=== PATIENT | male | born 1980 | race Two or more races ===

== ENCOUNTER 2020-12-10 12:05 | Outpatient (REF) | payer MEDICAID, SELFPAY | END 2020-12-10 12:06 | disposition home or self-care (01) | LOC: HO.LAB 12:05 | PROVIDERS: Visit Provider Internal Medicine | DX: Z20.822 Contact with and (suspected) exposure to COVID-19 (principal) | CPT/HCPCS: 36415; C9803; U0003 ==

== ENCOUNTER 2021-01-21 10:58 | Outpatient (REF) | payer MEDICAID, SELFPAY ==
[2021-01-21 11:54] LABS: Estimated Average Glucose 105 mg/dL; Hemoglobin A1c % 5.3 %
[2021-01-21 12:17] LABS: Alanine Aminotransferase 46 U/L (0-40); Albumin Level 4.4 g/dL (3.5-5.0); Alkaline Phosphatase 65 U/L (39-117); Anion Gap 12 (12-20); Aspartate Amino Transferase 24 U/L (5-37); Bilirubin Total 0.5 mg/dL (0.0-1.0); Blood Urea Nitrogen 12 mg/dL (9-16); Calcium 9.5 mg/dL (8.4-10.2); Carbon Dioxide 30 mmol/L (22-29); Chloride 102 mmol/L (96-108); Cholesterol 155 mg/dL; Estimated Glomerular Filt Rate > 60; Glucose Fasting 113 mg/dL (60-99); HDL Cholesterol 45 mg/dL; LDL Cholesterol Calculated 80 mg/dl; Potassium 4.4 mmol/L (3.3-5.1); Sodium 140 mmol/L (135-145); Total Protein 7.2 g/dL (6.5-8.0); Triglycerides 152 mg/dL
[2021-01-21 12:39] LABS: TSH reflex Free T4 2.46 uIU/mL (0.32-4.0)
== END 2021-01-21 10:59 | disposition home or self-care (01) ==
LOC: HO.LAB 10:58
PROVIDERS: PCP Physician Assistant; Visit Provider Physician Assistant
DX: Z13.1 Encounter for screening for diabetes mellitus (principal); Z13.220 Encounter for screening for lipoid disorders; Z13.29 Encounter for screening for other suspected endocrine disorder; F33.1 Major depressive disorder, recurrent, moderate; M62.81 Muscle weakness (generalized)
CPT/HCPCS: 36415; 80053; 80061; 83036; 84443

== ENCOUNTER 2022-03-12 11:05 | Outpatient (REF) | payer MEDICARE, MEDICAID, SELFPAY ==
[2022-03-12 11:37] LABS: Hematocrit 43.1 % (42.0-52.0); Hemoglobin 14.2 g/dl (14.0-18.0); Mean Corpuscular HGB Conc 32.9 g/dl (31.0-36.0); Mean Corpuscular Volume 84.8 fL (80.0-98.0); Mean Platelet Volume 9.5 fL (9.4-12.4); Platelet Count 212 X10*3/uL (160-400); Red Blood Count 5.08 X10*6/uL (4.60-5.80); Red Cell Distribution Width 13.5 % (11.0-16.0); White Blood Count 6.2 X10*3/uL (4.8-10.8)
[2022-03-12 12:16] LABS: Estimated Average Glucose 108 mg/dL; Hemoglobin A1c % 5.4 %
[2022-03-12 12:31] LABS: Alanine Aminotransferase 18 U/L (0-40); Albumin Level 4.2 g/dL (3.5-5.0); Alkaline Phosphatase 57 U/L (39-117); Anion Gap 11 (12-20); Aspartate Amino Transferase 15 U/L (5-37); Bilirubin Total 0.5 mg/dL (0.0-1.0); Blood Urea Nitrogen 12 mg/dL (9-16); Calcium 9.6 mg/dL (8.4-10.2); Carbon Dioxide 29 mmol/L (22-29); Chloride 101 mmol/L (96-108); Cholesterol 165 mg/dL; Estimated Glomerular Filt Rate > 60; Glucose Fasting 107 mg/dL (60-99); HDL Cholesterol 34 mg/dL; LDL Cholesterol Calculated 92 mg/dl; Potassium 4.3 mmol/L (3.3-5.1); Sodium 137 mmol/L (135-145); Total Protein 7.2 g/dL (6.5-8.0); Triglycerides 196 mg/dL
[2022-03-12 12:51] LABS: Creatinine Urine 58.51 mg/dL; Microalbumin Urine < 5.0 mg/L
[2022-03-12 12:54] LABS: Prostate Specific Antigen Scr 0.08 ng/mL (<0.05-4.0); TSH reflex Free T4 2.36 uIU/mL (0.32-4.0)
== END 2022-03-12 11:06 | disposition home or self-care (01) ==
LOC: HO.LAB 11:05
PROVIDERS: PCP Physician Assistant; Visit Provider Physician Assistant
DX: I10 Essential (primary) hypertension (principal); Z13.1 Encounter for screening for diabetes mellitus; Z13.220 Encounter for screening for lipoid disorders; Z13.29 Encounter for screening for other suspected endocrine disorder; Z12.5 Encounter for screening for malignant neoplasm of prostate
CPT/HCPCS: 36415; 80053; 80061; 82043; 83036; 84153; 84443; 85027

== ENCOUNTER 2024-01-27 14:54 | Outpatient (AMB) | payer OTHER, SELFPAY ==
[2024-01-27 15:20] VITALS: BP 102/80; PULSE 100; O2SAT 95; BMI 26.8
--- NOTE | 2024-01-27 15:20 | A.OFFPC_ITS ---
Vital Signs 01/27/24 15:20 Height 5 ft 8 in Weight 176 lb BMI 26.8 BP 102/80 Blood Pressure Location Lt brachial Position Sitting Pulse 100 Pulse Source Pulse Oximeter Pulse Oximetry (%) 95 Oxygen Delivery Method Room Air Intake Visit Reasons: Medication Follow Up Intake Note: The patient is here for a medication/anxiety follow-up. They have been experiencing vertigo and loss of appetite for the past five days. Supervisor [employer] Required: Yes Supervisor Motor Vehicle Assembly Language: Yakut Accompanied by: Self / Same As Patient Allergies No Known Allergies Allergy (Verified 01/27/24 15:40) Medication List - Last Reconciled 01/27/24 by Colton Alvarenga PA-C clonazepam 2 mg PO DAILY PRN 30 days clonidine HCl 0.1 mg PO BID PRN 30 days docusate sodium 100 mg PO BID 30 days gabapentin 300 mg PO BID 30 days hydrochlorothiazide 12.5 mg PO DAILY hydroxyzine HCl 25 mg PO BID 30 days mirtazapine 30 mg PO BEDTIME 30 days bwsnsubws-tmnsthwf-avygs-w.pet 0.25-1 % (Preparation H Maximum Strength) 1 appl VA BID 5 days risperidone (Risperdal) 2 mg PO BEDTIME 30 days sertraline (Zoloft) 50 mg PO DAILY 30 days Tobacco use date assessed: 01/09/23 [facility] Medication Follow Up HPI Details Patient is a 42-year-old male here today for follow-up on his anxiety. He continues with the use of mirtazapine, Zoloft, Risperdal and p.r.n. use of clonazepam for his anxiety. Has not been able to establish care with a psychiatrist as of yet. He reports he has been out of his medications over the last 7 days. Continues to miss appointments here at the [facility] He is in desperate need for a psychiatrist as he was seeing a psychiatrist when living in [place] many years ago. He does have comorbid polysubstance use disorder (alcohol and opiates). He reports he has been off of methadone over last 2 months and has stop drinking alcohol. Has lost significant amount of weight since being off of methadone . He reports he always feels best when he takes clonazepam. Has had history of hospitalization for psychiatric issues. [facility] Surgical History Appendicitis Family History Father No problems noted. Mother No problems noted. Social History Housing: Apartment Alcohol intake: former Patient Tobacco Use Status: Current everyday Tobacco user Tobacco use type: Cigarette Cigarettes Per Day: 6 e-Cigarette/Vaping Use: Never Used Second Hand Smoke Exposure: No service: No Current occupational status: unemployed and disabled Cognitive needs: No Hearing needs: No Vision needs: No Questionnaire PHQ-9 Over the last 2 weeks, how often have you been bothered by any of the following problems? 1. Little interest or pleasure in doing things: nearly every day 2. Feeling down, depressed, or hopeless: nearly every day 3. Trouble falling or staying asleep, or sleeping too much: nearly every day 4. Feeling tired or having little energy: nearly every day 5. Poor appetite or overeating: more than half the days 6. Feeling bad about yourself - or that you are a failure or have let yourself or your family down: nearly every day 7. Trouble concentrating on things, such as reading the newspaper or watching television: nearly every day 8. Moving or speaking so slowly that other people could have noticed. Or the opposite - being so fidgety or restless that you have been moving around a lot more than usual: nearly every day 9. Thoughts that you would be better off or of hurting yourself in some way: not at all Total score: 23 Depression Screening Interpretation: Positive Depression Screening Follow-up: Existing condition Depression Screening Done: Yes 19244 - PHQ-9 Billing: Yes Source: Developed by Drs. Eliecer Rodriguez, Iveth Marin, Mario Naylor and colleagues, with an educational jessica from [employer]. Thrive Questionnaire Date Thrive assessed: 01/27/24 I am a: Patient What is your living situation today?: I have a steady place to live Within the past 12 months, did the food you bought not last and you didn't have the money to get more?: Never true Within the past 12 months, did you worry whether your food would run out before you got money to buy more?: Never true Do you have trouble paying for medicines?: No Do you have trouble getting transportation to medical appointments?: No Do you have trouble paying your heating and electricity bill?: No Do you have trouble taking care of your child, family member or friend?: No Do you have trouble with day-to-day activities such as bathing, preparing meals, shopping, managing finances, etc.?: No Are you currently unemployed and looking for a job?: No Are you interested in more education?: No Please select the resources that you would like help with: None Currently or been in a relationship where the following occur: no concerns reported THRIVE Score: 0 AUDIT C Alcohol Use Questionnaire (AUDIT-C) 1. How often do you have a drink containing alcohol?: Never 3. How often do you have six or more drinks on one occasion?: Never Total Score: 0 SUSANNA-7 AMB Questionnaire SUSANNA-7 Date SUSANNA - 7 assessed: 01/27/24 Feeling nervous, anxious, or on edge: 3 = Nearly every day Not being able to stop or control worryin = Nearly every day Worrying too much about different things: 3 = Nearly every day Trouble relaxin = Nearly every day Being so restless that it is hard to sit still: 3 = Nearly every day Becoming easily annoyed or irritable: 3 = Nearly every day Feeling afraid as if something awful might happen: 3 = Nearly every day Total SUSANNA-7 score (0-4 normal; 5-9 mild; 10-14 moderate; 15-21 severe): 21 Source: Developed by Drs. Eliecer Rodriguez, Iveth Marin, Mario Naylor and colleagues, with an educational jessica from [employer]. SUSANNA-7 Assessment Billing SUSANNA-7 Assessment Tool: SUSANNA-7 Assessment 31783 Review of Systems Const Denies headache(s) Eyes Denies loss of vision ENT Denies vertigo, Denies dizziness, Denies headache(s) and Denies sore throat Card Denies chest pain, Denies leg edema and Denies lightheadedness Resp Denies cough, Denies hemoptysis and Denies wheezing GI Denies abdominal pain, Denies melena, Denies constipation, Denies diarrhea and Denies vomiting Denies dysuria, Denies urinary frequency and Denies urinary urgency Musc Denies arthralgias, Denies joint swelling, Denies numbness and Denies tingling Neuro Denies Abnormal speech present, Denies behavioral changes, Denies vertigo, Denie s dizziness, Denies headache(s), Denies loss of vision, Denies memory loss, Denies numbness and Denies tingling Psych Denies anxiety, Denies behavioral changes, Denies depression, Denies memory loss and Denies panic attacks Jigar/Lymph Denies easy bleeding and Denies easy bruising Aller/Immun Denies wheezing Physical exam (Primary Care) Vital Signs: Last Vital Signs Pulse 100 01/27/24 15:20 BP 102/80 01/27/24 15:20 Pulse Ox 95 01/27/24 15:20 Oxygen Delivery Method Room Air 01/27/24 15:20 BMI result Body Mass Index 26.8 Tobacco/Smoking Status: Tobacco use Status Tobacco use date assessed 01/09/23 01/27/24 15:20 Patient Tobacco Use Status Current everyday Tobacco 01/27/24 15:20 Tobacco use type Cigarette 01/27/24 15:20 e-Cigarette/Vaping Use Never Used 01/27/24 15:20 Are you ready to quit: No Tobacco cessation counseling provided: Yes Items discussed: Nicotine replacement and QuitWorks Relapse Prevention: discussed the importance of a supportive environment, discussed negative mood or depression after quitting, weight gain after smoking is common and discussed dietary, exercise and/or lifestyle changes Number of minutes spent counselin CPT code: 37373 - 4-10 Minutes PHQ-9: PHQ-9 Score PHQ-9: Total score 23 01/27/24 16:11 Depression Screening Interpretation: Positive Depression Screening Follow-up: Existing condition Thrive Assessment: Date of Thrive Assessment Date Thrive assessed 01/27/24 01/27/24 15:38 Currently or been in a relationship where the following occur: no concerns reported Const General: healthy appearing, no acute distress, alert and awake Nutritional Appearance: well nourished Orientation/consciousness: oriented to person, oriented to place and oriented to time HENMT Ears: TM's normal bilaterally General nose exam: Normal nasal mucous membranes and turbinates present Eyes Conjunctivae: conjunctivae normal Sclerae: sclerae normal Pupils: Equal, round and reactive pupils present Neck Neck: Yes no lymphadenopathy and Yes no JVD Thyroid: Thyroid normal Carotids: no bruits Resp Effort & Inspection: normal respiratory effort and not tachypneic Auscultation: no crackles, no rales, no rhonchi and no wheezes Cardio Rate: regular rate Rhythm: regular rhythm Heart sounds: no murmurs and normal S1 and S2 GI Palpation (GI): Soft to palpation, nontender, no hepatomegaly and no splenomegaly Auscultation: normal bowel sounds Skin General skin exam: no rashes or lesions noted and dry skin Neuro General: oriented to person, oriented to place and oriented to time Cranial nerves: Yes Equal, round and reactive pupils present Speech: No Abnormal speech present Gait exam (Neuro): Normal gait present Motor exam (neuro): no tremor noted Extrem Right upper extremity: full ROM Left upper extremity: full ROM Right lower extremity: full ROM; no edema Left lower extremity: full ROM; no edema Psych Mental Status: mental status grossly normal Speech and movement: Normal speech and movement present Affect: normal affect Attitude: cooperative Thought process: Normal thought process present Assessment and Plan Assessment & Plan (1) SUSANNA (generalized anxiety disorder): Code(s): F41.1 - Generalized anxiety disorder Plan: As per HPI, susanna 7 score positive for severe anxiety which has been existing condition for him. Has apparently lost follow-up with a mental health therapist he was talking to over phone.. And would like to reestablish care with a psychiatrist. Was seeing a psychiatrist years ago in [place]. On many mental health medications at this time though feels it is there ineffective. He does use clonazepam on a very limited p.r.n. basis as he only gets # 20 tabs of them a month as he does have a substance abuse history. He has found that gabapentin has been helpful for his anxiety and sleep. (2) PTSD (post-traumatic stress disorder): Code(s): F43.10 - Post-traumatic stress disorder, unspecified Plan: As above (3) MDD (major depressive disorder), recurrent episode, moderate: Code(s): F33.1 - Major depressive disorder, recurrent, moderate Plan: Patient's PHQ-9 score positive for major depressive disorder which has been existing condition for him. Again would like to speak with a mental health therapist and a psychiatrist. Continues to have some mild depression though anxiety is his main concern. Otherwise denies any SI or HI (4) H/O: CVA (cerebrovascular accident): Code(s): Z86.73 - Personal history of transient ischemic attack (TIA), and cerebral infarction without residual deficits Plan: History of stroke many years ago, has left him with bilateral upper extremity neuromuscular weakness. Has done many months of therapy for his upper extremities and has not totally regain strength in his hands. He is disabled because of his neuromuscular weakness in bilateral hands. (5) Alcohol dependence: Code(s): F10.20 - Alcohol dependence, uncomplicated Qualifiers: Substance use status: uncomplicated Qualified Code(s): F10.20 - Alcohol dependence, uncomplicated Plan: Currently in remission. Per patient he reports he has not been drinking alcohol (6) Opiate dependence: Code(s): F11.20 - Opioid dependence, uncomplicated Qualifiers: Substance use status: uncomplicated Qualified Code(s): F11.20 - Opioid dependence, uncomplicated Plan: Reports he is in remission from opiate use. He stopped using methadone 2 months ago. Unclear if this is true. (7) BPPV (benign paroxysmal positional vertigo): Code(s): H81.10 - Benign paroxysmal vertigo, unspecified ear Qualifiers: Laterality: bilateral Qualified Code(s): H81.13 - Benign paroxysmal vertigo, bilateral Plan: Reports having dizziness over the last 7 days. Reports his dizziness associated with head movements. Will supply patient with meclizine and advised on Sanjana maneuvers. (8) Smoker: Code(s): F17.200 - Nicotine dependence, unspecified, uncomplicated Plan: He does understand he needs to quit smoking. He reports he has drastically reduced his smoking and only smoking a few cigarettes per week. Orders: Orders Lipid Panel 01/27/24 Z86.73 - Personal history of transient ischemic attack (TIA), and cerebral infarction without residual deficits Microalbumin, Random (w Creat) 01/27/24 I10 - Essential (primary) hypertension Comprehensive [place]. Panel Fast 01/27/24 I10 - Essential (primary) hypertension Complete Blood Count no Diff 01/27/24 I10 - Essential (primary) hypertension Referrals Counseling Referral F33.1 - Major depressive disorder, recurrent, moderate Medications: New meclizine 12.5 mg PO TID 15 days 45 tabs 0RF dizziness H81.13 - Benign paroxysmal vertigo, bilateral Refilled hydroxyzine HCl 25 mg PO BID 30 days 60 tabs 4RF F41.1 - Generalized anxiety disorder risperidone (Risperdal) 2 mg PO BEDTIME 30 days 30 tabs 0RF F43.10 - Post- traumatic stress disorder, unspecified clonazepam 2 mg PO DAILY 30 days PRN 7 tabs 0RF panic attack(s) F41.1 - Generalized anxiety disorder mirtazapine 30 mg PO BEDTIME 30 days 30 tabs 3RF F33.1 - Major depressive disorder, recurrent, moderate hydrochlorothiazide 12.5 mg PO DAILY 90 caps 1RF I10 - Essential (primary) hypertension sertraline (Zoloft) 50 mg PO DAILY 30 days 30 tabs 3RF F33.1 - Major depressive disorder, recurrent, moderate clonidine HCl 0.1 mg PO BID 30 days PRN 60 tabs 4RF anxiety F41.1 - Generalized anxiety disorder clonazepam 2 mg PO DAILY 30 days PRN 20 tabs 0RF panic attack(s) F41.1 - Generalized anxiety disorder Coding Level of Care Code Est Pt Level 4 (23874) Diagnoses SUSANNA (generalized anxiety disorder) F41.1 PTSD (post-traumatic stress disorder) F43.10 MDD (major depressive disorder), recurrent episode, moderate F33.1 H/O: CVA (cerebrovascular accident) Z86.73 Uncomplicated alcohol dependence F10.20 Substance use status: uncomplicated Uncomplicated opioid dependence F11.20 Substance use status: uncomplicated Benign paroxysmal positional vertigo due to bilateral vestibular disorder H81.13 Laterality: bilateral Smoker F17.200 Additional Codes SUSANNA-7 Assessment Billing - SUSANNA-7 Assessment Tool: SUSANNA-7 Assessment 57222 ([id number]) Vital Signs *Quality* - CPT code: 03951 - 4-10 Minutes ([id number])
== END 2024-01-27 16:04 | disposition home or self-care (01) ==
PROVIDERS: PCP Physician Assistant; Visit Provider Physician Assistant
DX: F41.1 Generalized anxiety disorder (principal); F33.1 Major depressive disorder, recurrent, moderate; F10.20 Alcohol dependence, uncomplicated; F11.20 Opioid dependence, uncomplicated; F43.10 Post-traumatic stress disorder, unspecified; Z86.73 Personal history of transient ischemic attack (TIA), and cerebral infarction without residual deficits; H81.13 Benign paroxysmal vertigo, bilateral; F17.210 Nicotine dependence, cigarettes, uncomplicated
CPT/HCPCS: 99214

== ENCOUNTER 2024-10-13 10:47 | Outpatient (REF) | payer OTHER, SELFPAY ==
[2024-10-16 04:53] LABS: TS Negative Control Passed; TS Panel A 0; TS Panel B 0; TS Positive Control Passed; TSpotTB Negative (Negative)
== END 2024-10-13 10:48 | disposition home or self-care (01) ==
LOC: HO.LAB 10:47
PROVIDERS: PCP Physician Assistant; Visit Provider Physician Assistant
DX: I10 Essential (primary) hypertension (principal); F33.1 Major depressive disorder, recurrent, moderate; F11.20 Opioid dependence, uncomplicated; M62.81 Muscle weakness (generalized); Z23 Encounter for immunization; Z86.73 Personal history of transient ischemic attack (TIA), and cerebral infarction without residual deficits; Z79.899 Other long term (current) drug therapy; Z11.1 Encounter for screening for respiratory tuberculosis
CPT/HCPCS: 36415; 86481; 90471; 90656; 99212

== ENCOUNTER 2024-10-13 10:47 | Outpatient (AMB) | payer OTHER, SELFPAY ==
--- NOTE | 2024-10-13 11:03 | MHC.PC.OV ---
Vital Signs 10/13/24 11:04 Height 5 ft 8 in Weight 189 lb 6 oz BMI 28.8 BP 134/82 Blood Pressure Location Lt brachial Position Sitting Pulse 100 Pulse Source Pulse Oximeter Pulse Oximetry (%) 98 Oxygen Delivery Method Room Air Intake Visit Reasons: Follow-up psychiatry Allergies No Known Allergies Allergy (Verified 01/27/24 15:40) Tobacco use date assessed: 01/09/23 HPI Follow-up psychiatry HPI Details Patient is a 44-year-old male here today for follow-up on his anxiety. He continues with the use of mirtazapine, Zoloft, Risperdal and p.r.n. use of clonazepam for his anxiety. He reports he will be set up with a psychiatrist next month . Continues with mirtazapine, clonazepam, clonidine and Risperdal with decent affect on his mood and anxiety. He reports family is trying to get him into a group day program and will need TB screening Opiate dependency: Now followed at a Suboxone clinic over the last 4 months and has been sober from street drugs per patient. CVA: Patient has a history of a CVA that left him with bilateral upper extremity muscle atrophy and weakness. He has limited ability and dexterity with both of his hands. He is disabled due to this. He will like to have [employer] services to help him at home with his activities daily living secondary to his bilateral hand weakness. [facility] Surgical History Appendicitis Family History Father No problems noted. Mother No problems noted. Social History Housing: Apartment Alcohol intake: former Patient Tobacco Use Status: Current everyday Tobacco user Tobacco use type: Cigarette Cigarettes Per Day: 6 e-Cigarette/Vaping Use: Never Used Second Hand Smoke Exposure: No service: No Current occupational status: unemployed and disabled Cognitive needs: No Hearing needs: No Vision needs: No Questionnaire Thrive Questionnaire Date Thrive assessed: 01/27/24 SUSANNA-7 AMB Questionnaire SUSANNA-7 Date SUSANNA - 7 assessed: 01/27/24 Source: Developed by Drs. Eliecer Rodriguez, Iveth Marin, Mario Naylor and colleagues, with an educational jessica from [employer]. Review of Systems Const Denies headache(s) Eyes Denies loss of vision ENT Denies vertigo, Denies dizziness, Denies headache(s) and Denies sore throat Card Denies chest pain, Denies leg edema and Denies lightheadedness Resp Denies cough, Denies hemoptysis and Denies wheezing GI Denies abdominal pain, Denies melena, Denies constipation, Denies diarrhea and Denies vomiting Denies dysuria, Denies urinary frequency and Denies urinary urgency Musc Denies arthralgias, Denies joint swelling, Denies numbness and Denies tingling Neuro Denies Abnormal speech present, Denies behavioral changes, Denies vertigo, Denies dizziness, Denies headache(s), Denies loss of vision, Denies memory loss, Denies numbness and Denies tingling Psych Denies anxiety, Denies behavioral changes, Denies depression, Denies memory loss and Denies panic attacks Jigar/Lymph Denies easy bleeding and Denies easy bruising Aller/Immun Denies wheezing Physical exam (Primary Care) Vital Signs: Last Vital Signs Pulse 100 10/13/24 11:04 BP 134/82 10/13/24 11:04 Pulse Ox 98 10/13/24 11:04 Oxygen Delivery Method Room Air 10/13/24 11:04 BMI result Body Mass Index 28.8 Tobacco/Smoking Status: Tobacco use Status Tobacco use date assessed 01/09/23 10/13/24 11:09 Patient Tobacco Use Status Current everyday Tobacco 10/13/24 11:09 Tobacco use type Cigarette 10/13/24 11:09 e-Cigarette/Vaping Use Never Used 10/13/24 11:09 Thrive Assessment: Date of Thrive Assessment Date Thrive assessed 01/27/24 10/13/24 11:09 Const General: healthy appearing, no acute distress, alert and awake Nutritional Appearance: well nourished Orientation/consciousness: oriented to person, oriented to place and oriented to time HENMT Ears: TM's normal bilaterally General nose exam: Normal nasal mucous membranes and turbinates present Eyes Conjunctivae: conjunctivae normal Sclerae: sclerae normal Pupils: Equal, round and reactive pupils present Neck Neck: Yes no lymphadenopathy and Yes no JVD Thyroid: Thyroid normal Carotids: no bruits Resp Effort & Inspection: normal respiratory effort and not tachypneic Auscultation: no crackles, no rales, no rhonchi and no wheezes Cardio Rate: regular rate Rhythm: regular rhythm Heart sounds: no murmurs and normal S1 and S2 GI Palpation (GI): Soft to palpation, nontender, no hepatomegaly and no splenomegaly Auscultation: normal bowel sounds Skin General skin exam: no rashes or lesions noted and dry skin Neuro General: oriented to person, oriented to place and oriented to time Cranial nerves: Yes Equal, round and reactive pupils present Speech: No Abnormal speech present Gait exam (Neuro): Normal gait present Motor exam (neuro): no tremor noted Extrem Other: BILATERAL UPPER EXTREMITY 4 IN HANDS: 1/5 [employer] STRENGTH BILATERALLY SIGNIFICANT MUSCLE ATROPHY IN THE HANDS AND FOREARMS Right upper extremity: full ROM Left upper extremity: full ROM Right lower extremity: full ROM; no edema Left lower extremity: full ROM; no edema Psych Mental Status: mental status grossly normal Speech and movement: Normal speech and movement present Affect: normal affect Attitude: cooperative Thought process: Normal thought process present Office Procedures Flu Questionnaire Does the patient have a severe egg allergy?: No Does the patient have severe life threatening allergies?: No Does the patient have a fever or illness today?: No Has the patient ever had Guillain-Naylor Syndrome?: No Has the patient ever had any past reaction to a flu shot?: No Immunizations Fluarix Triv [id number] (PF) 45 mcg (15 mcg x 3)/0.5 mL IM syringe Performing Provider: Colton Alvarenga PA-C [facility] Administered by: HAZEL Gaston on 10/13/24 11:14 Dose Route Admin Location Dispensed Lot Number Expiration Date NDC Latex Foam Worker 0.5 mL IM Left Deltoid 0.5 mL [id number] 05/29/25 [id number] [employer] VIS Given Date VIS Provided VIS Publication Date 10/13/24 Single Vaccine 21 Eligibility Eligibility Date Funding Source Not [facility] Eligible 10/13/24 Private Coding Level of Care Code Est Pt Level 4 (96836) Diagnoses Essential hypertension I10 Hypertension type: essential hypertension Uncomplicated opioid dependence F11.20 Substance use status: uncomplicated MDD (major depressive disorder), recurrent episode, moderate F33.1 H/O: CVA (cerebrovascular accident) Z86.73 Hand muscle weakness M62.81 Assessment & Plan Assessment & Plan (1) HTN (hypertension): Code(s): I10 - Essential (primary) hypertension Category: Medical Qualifiers: Hypertension type: essential hypertension Qualified Code(s): I10 - Essential (primary) hypertension Plan: Patient's blood pressure acceptable today in office. Will continue him on his current dose of hydrochlorothiazide with goal blood pressure to remain below 140/90 (2) Opiate dependence: Code(s): F11.20 - Opioid dependence, uncomplicated Category: Medical Qualifiers: Substance use status: uncomplicated Qualified Code(s): F11.20 - Opioid dependence, uncomplicated Plan: Patient is going to a Suboxone clinic. He reports he has been sober from street drugs over the last 4 months. He reports feeling good. He would like to start up in a day program to help him as well and needs TB screening. (3) MDD (major depressive disorder), recurrent episode, moderate: Code(s): F33.1 - Major depressive disorder, recurrent, moderate Category: Medical Plan: Patient reports he is been set up with a psychiatrist and will have his 1st appointment next month. He continues on multiple mental health medications that have helped him. (4) H/O: CVA (cerebrovascular accident): Code(s): Z86.73 - Personal history of transient ischemic attack (TIA), and cerebral infarction without residual deficits Category: Medical Plan: Patient had a stroke several years ago which has led to bilateral upper extremity muscle atrophy and weakness. He has the inability to completely close his hands and make a fist. He is interested in getting [facility] home services to help him with his activities of daily living. Wrote letter to confirm he does disability. (5) Hand muscle weakness: Code(s): M62.81 - Muscle weakness (generalized) Category: Medical Plan: As above, secondary to CVA years ago. Orders: Orders Influenza [id number] Immunization Today Z23 - Encounter for immunization T Spot TB Today Z11.1 - Encounter for screening for respiratory tuberculosis Medications: Refilled clonazepam 2 mg PO DAILY PRN 20 tabs 0RF panic attack(s) 30 days F41.1 - Generalized anxiety disorder clonidine HCl 0.1 mg PO BID PRN 60 tabs 3RF anxiety 30 days F41.1 - Generalized anxiety disorder sertraline (Zoloft) 50 mg PO DAILY 30 tabs 3RF 30 days F33.1 - Major depressive disorder, recurrent, moderate docusate sodium 100 mg PO BID 60 caps 3RF 30 days F43.10 - Post-traumatic stress disorder, unspecified gabapentin 300 mg PO BID 60 caps 3RF 30 days Z86.73 - Personal history of transient ischemic attack (TIA), and cerebral infarction without residual deficits hydrochlorothiazide 12.5 mg PO DAILY 90 caps 1RF I10 - Essential (primary) hypertension hydroxyzine HCl 25 mg PO BID 60 tabs 3RF 30 days F41.1 - Generalized anxiety disorder mirtazapine 30 mg PO BEDTIME 30 tabs 3RF 30 days F33.1 - Major depressive disorder, recurrent, moderate risperidone (Risperdal) 2 mg PO BEDTIME 30 tabs 3RF 30 days F43.10 - Post-traumatic stress disorder, unspecified
[2024-10-13 11:04] VITALS: BP 134/82; PULSE 100; O2SAT 98; BMI 28.8
== END 2024-10-13 11:33 | disposition home or self-care (01) ==
PROVIDERS: PCP Physician Assistant; Visit Provider Physician Assistant
DX: I10 Essential (primary) hypertension (principal); F11.20 Opioid dependence, uncomplicated; F33.1 Major depressive disorder, recurrent, moderate; Z86.73 Personal history of transient ischemic attack (TIA), and cerebral infarction without residual deficits; M62.81 Muscle weakness (generalized); Z23 Encounter for immunization

== ENCOUNTER 2025-01-12 12:03 | Emergency (ER) | payer OTHER, SELFPAY ==
--- NOTE | ~2025-01-12 | CT_ITS ---
CLINICAL HISTORY: ?dental abscess vs edema, R side CT maxillofacial with contrast Comparison: None Findings: Multiple bilateral mandibulare teeth demonstrate carious lesions and periapical lucencies. Periapical lucency associated with the right mandibular canine erodes through the buccal cortex. There is adjacent edema as well as a small periosteal abscess measuring 8 mm. No gross orbital abnormality. No abnormal intracranial enhancement. Paranasal sinuses and mastoid air cells are clear. No acute fracture. IMPRESSION: 1. Odontogenic abscess and soft tissue infection associated with periapical lucency of the right mandibular canine. This document has been electronically signed by: Jorge Alberto Denis MD on 01/12/2025 19:21:23
[2025-01-12 12:39] VITALS: BP 135/85; PULSE 79; RESP 18; TEMP 36.7; O2SAT 99; BMI 19.4
--- NOTE | 2025-01-12 12:39 | ED_ITS ---
HPI - General Adult General Chief complaint: Dental/Oral Stated complaint: Jaw Pain Time Seen by Provider: 01/12/25 16:43 Source: patient, RN notes reviewed and old records reviewed Mode of arrival: ambulatory History of Present Illness ED Provider: Bettie Ovalle PA-C HPI narrative: 44-year-old male with a past medical history of GERD, MDD, PTSD, HTN, ETOH dependence, substance abuse, presenting to the ED complaining of right lower jaw/dental pain and swelling with suspected abscess x 2 days. Reports slight drainage from area. Denies fever, chills, difficulty or inability to swallow, recent dental procedures, dental trauma. Related Data Previous Rx's ?Medication ?Instructions ?Recorded meclizine 12.5 mg tablet 12.5 mg PO TID dizziness 15 days 02/25/24 #45 tabs docusate sodium 100 mg capsule 100 mg PO BID 30 days #60 caps 10/13/24 phenylephrine 0.25 %-pramoxine 1 1 appl ME BID 5 days #26 grams 11/29/24 %-glycerin-wh.petrolatum rectal cream (Preparation H Maximum Strength) clonazepam 2 mg tablet 2 mg PO DAILY PRN panic attack(s) 01/02/25 30 days #20 tabs clonidine HCl 0.1 mg tablet 0.1 mg PO BID PRN anxiety 30 days 01/02/25 #60 tabs gabapentin 300 mg capsule 300 mg PO BID 30 days #60 caps 01/02/25 hydrochlorothiazide 12.5 mg capsule 12.5 mg PO DAILY #90 caps 01/02/25 hydroxyzine HCl 50 mg tablet 50 mg PO BID 90 days #180 tabs 01/02/25 mirtazapine 30 mg tablet 30 mg PO BEDTIME 30 days #30 tabs 01/02/25 sertraline 100 mg tablet (Zoloft) 100 mg PO DAILY 90 days #90 tabs 01/02/25 risperidone 2 mg tablet (Risperdal) 2 mg PO BEDTIME 30 days #30 tabs 01/11/25 amoxicillin 875 mg-potassium 1 tab PO BID 7 days #14 tabs 01/12/25 clavulanate 125 mg tablet Allergies Allergy/AdvReac Type Severity Reaction Status Date / Time No Known Allergies Allergy Verified 01/12/25 12:42 Review of Systems 2 Review of Systems: Yes all other systems are reviewed and are negative Constitutional: Constitutional: Reports as per [facility] Past Medical History Attestation statement: The following information was validated with the patient. Source: old records reviewed Surgical History Appendicitis Family History Family History Father No problems noted. Mother No problems noted. Social History Social History Housing: Apartment Alcohol intake: former Patient Tobacco Use Status: Current everyday Tobacco user Tobacco use type: Cigarette Cigarettes Per Day: 6 Smoked in Last 30 Days: No e-Cigarette/Vaping Use: Never Used Second Hand Smoke Exposure: No Use of substances other than those prescribed or required for medical reasons: No Advance Directives: No Advance Directives Information Provided: Yes Do you have a plan to hurt others: No Plan service: No Current occupational status: unemployed and disabled Cognitive needs: No Hearing needs: No Vision needs: No Physical Exam ED Vital Signs: Vital Signs - 24 hr 01/12/25 12:39 01/12/25 17:19 01/12/25 19:56 Temperature 98.0 F 99.9 F 99.9 F Pulse Rate 79 68 68 Respiratory Rate 18 17 17 Blood Pressure 135/85 173/91 H 173/91 H Pulse Oximetry 99 99 99 Oxygen Delivery Method Room Air Room Air Room Air BMI result Body Mass Index 19.4 Const General: cooperative, healthy appearing and no acute distress Orientation/consciousness: patient oriented x3 Limitations: no limitations HENMT Other: + right lower jaw with appreciable swelling and induration. + right lower canine w/gingival swelling & induration w/ tenderness appreciated. No focal fluctuance. Poor dentition Head: Yes normal to inspection and Yes atraumatic Ears: hearing grossly normal bilaterally General nose exam: Normal external nose present Mouth: no drooling Throat: Yes posterior oropharynx normal, Yes tonsils normal, Yes uvula midline, No peritonsillar mass, No uvula laterally displaced and No uvular edema Eyes General: appearance normal, both eyes and all related structures EOM: EOMs intact bilaterally Neck Other: + right-sided submandibular lymphadenopathy Neck: Yes normal visual inspection, Yes no meningeal signs and No anterior neck swelling Resp Effort & Inspection: normal respiratory effort, no respiratory distress and no stridor Cardio Rate: regular rate Skin Rashes: no rashes Wounds: no wounds Neuro General: patient oriented x3, tone normal and no meningeal signs Cranial nerves: Yes CN's II-XII intact bilaterally Gait exam (Neuro): Normal gait present Extrem General: Yes normal to inspection Course Course Course Narrative: This is a rapid medical exam performed by Xavier Galan NP: Additional HPI, ROS, PE not included below will be deferred to primary provider. Patient is a 44-year-old male with history of smoking, alcohol dependence, opiate dependence, CVA, HTN, MDD, PTSD, SUSANNA, BPPV presenting with complaint of right lower jaw pain/abscess. Subjective fevers. Plan: labs -labs reassuring. ESR/CRP minimally elevated 1936--CT facial bones w IV con IMPRESSION: 1. Odontogenic abscess and soft tissue infection associated with periapical lucency of the right mandibular canine. > on exam no appreciable focal fluctuance. Will initiate patient on p.o. Augmentin with close dentistry/ENT follow-up. Results discussed with patient including worrisome signs and symptoms and strict return precautions, and when to return to the emergency department. They verbalized understanding and feel safe for discharge at this time. Medications Administered Discontinued Medications Generic Name Dose Route Start Last Admin Trade Name Issaq PRN Reason Stop Dose Admin Ampicillin Sodium/Sulbactam 100 mls @ 200 mls/hr 01/12/25 17:18 01/12/25 18:22 Sodium 3 gm/ Sodium Chloride IV 01/12/25 17:47 Infused ONCE ONE Infusion Iohexol 100 ml 01/12/25 18:25 01/12/25 18:25 Iohexol 350 Mg/Ml 100 Ml Infus..Btl IV 01/12/25 18:26 85 ml ONCE ONE Administration Ketorolac Tromethamine 15 mg 01/12/25 17:17 01/12/25 17:45 Ketorolac Tromethamine 15 Mg/Ml Vial IVPUSH 01/12/25 17:18 15 mg ONCE ONE Administration Medical Decision Making Medical Decision Making MDM Narrative: 44-year-old male with a past medical history of GERD, MDD, PTSD, HTN, ETOH dependence, substance abuse, presenting to the ED complaining of right lower jaw/dental pain and swelling with suspected abscess x 2 days. On exam vital signs stable, NAD, nontoxic appearing, physical exam as noted above. Concern for dental abscess vs edema. No appreciable drainable collection on exam. No evidence of [employer]/retropharyngeal abscess. Low suspicion for severe sepsis Plan: Labs, CT, empiric IV antibiotics, re-evaluate Please refer to course for remaining clinical decision making, interpretation of labs/imaging results, and discussions with consultants and/or family members. Differential Diagnosis Differential Diagnoses: The differential diagnosis associated with the presentation includes As above Admission/Observation Consideration of admission/observation: Escalation of care including admission/observation considered Lab Data MDM Lab Attestation statement: I reviewed the patient's lab results. 01/12/25 12:47 01/12/25 12:47 Labs: Lab Results 01/12/25 Range/Units 12:47 WBC 8.4 (4.8-10.8) X10*3/uL RBC 4.88 (4.60-5.80) X10*6/uL Hgb 13.5 L (14.0-18.0) g/dl Hct 39.4 L (42.0-52.0) % MCV 80.7 (80.0-98.0) fL MCH 27.7 (27.0-33.0) pg MCHC 34.3 (31.0-36.0) g/dl RDW 13.3 (11.0-16.0) % Plt Count 170 (160-400) X10*3/uL MPV 9.1 L (9.4-12.4) fL Immature Gran % (Auto) 0.4 (0.0-0.4) % Neut % (Auto) 42.9 L (45-73) % Lymph % (Auto) 44.8 H (20-40) % Ward % (Auto) 9.0 (2-11) % Eos % (Auto) 2.4 (0-4) % Baso % (Auto) 0.5 (0-2) % Lymph # (Auto) 3.8 (1.2-4.9) X10*3/uL Ward # (Auto) 0.8 (0.1-1.2) X10*3/uL Eos # (Auto) 0.2 (0.0-0.4) X10*3/uL Baso # (Auto) 0.0 (0.0-0.2) X10*3/uL Abs Immat Gran (auto) 0.03 (0.00-0.03) X10*3/uL Absolute Neuts (auto) 3.6 (2.0-8.3) x10*3/uL Absolute Nucleated RBC 0.000 (0.0-0.012) X10*3/uL Nucleated RBC % (auto) 0.0 (0.0-0.2) /100WBC ESR 16 H (0-15) MM/HR Sodium 140 (135-145) mmol/L Potassium 4.1 (3.3-5.1) mmol/L Chloride 105 (96-108) mmol/L Carbon Dioxide 29 (22-29) mmol/L Anion Gap 10 L (12-20) BUN 15 (9-16) mg/dL Creatinine 0.79 (0.5-1.4) mg/dL Estim Creat Clear Calc 96.8 Estimated GFR > 60 Random Glucose 88 (60-115) mg/dL Calcium 9.2 (8.4-10.2) mg/dL Total Bilirubin 0.4 (0.0-1.0) mg/dL AST 22 (5-37) U/L ALT 16 (0-40) U/L Alkaline Phosphatase 56 (39-117) U/L C-Reactive Protein 1.78 H (< or = 0.50) mg/dL Total Protein 7.4 (6.5-8.0) g/dL Albumin 4.1 (3.5-5.0) g/dL Independent Interpretation I performed an independent interpretation of an: CT Scan Radiology Impression Discussion of test interpretation with radiology: I have reviewed the radiologist's reading. External Record Review External record reviewed: Inpatient record, Office record, Outpatient record, Prior outpatient labs, Prior outpatient radiology, Primary care record and Outside ED record Tests considered The following testing was considered but not selected: As above Prescription Management I considered prescription management with: Pain Medication and Antibiotic Chronic Conditions Patient?s care impacted by: Other Social Determinants Patient?s care significantly limited by Social Determinants of Health including: Inadequate housing, Low income, Alcoholism and drug addiction in family, Problems related to primary support group, Unemployment and Other Social Determinant of Health Discharge Plan Discharge Clinical Impression: Dental abscess Patient Disposition: Home, Self-Care Instructions: Dental Abscess (ED) Additional Instructions: Your blood work is reassuring. CT scan confirms right canine abscess and soft tissue infection Augmentin as an antibiotic please take as prescribed until completion Please take ibuprofen and Tylenol at home for pain You may gargle with warm saltwater If swelling persists/worsens, you develop fever, difficulty or inability to swallow return to the ED immediately Prescriptions: New amoxicillin-pot clavulanate 875-125 mg tablet 1 tab PO BID 7 Days Qty: 14 0RF No Action meclizine 12.5 mg tablet 12.5 mg PO TID 15 Days Qty: 45 2RF Preparation H Maximum Strength 0.25-1 % cream 1 appl ME BID 5 Days Qty: 26 0RF clonazepam 2 mg tablet 2 mg PO DAILY PRN (Reason: panic attack(s)) 30 Days Qty: 20 0RF clonidine HCl 0.1 mg tablet 0.1 mg PO BID PRN (Reason: anxiety ) 30 Days Qty: 60 3RF gabapentin 300 mg capsule 300 mg PO BID 30 Days Qty: 60 3RF hydrochlorothiazide 12.5 mg capsule 12.5 mg PO DAILY Qty: 90 1RF sertraline [Zoloft] 100 mg tablet 100 mg PO DAILY 90 Days Qty: 90 1RF mirtazapine 30 mg tablet 30 mg PO BEDTIME 30 Days Qty: 30 3RF hydroxyzine HCl 50 mg tablet 50 mg PO BID 90 Days Qty: 180 1RF risperidone [Risperdal] 2 mg tablet 2 mg PO BEDTIME 30 Days Qty: 30 6RF docusate sodium 100 mg capsule 100 mg PO BID 30 Days Qty: 60 3RF Referrals: Dane Schmidt [Dentist] - Juancarlos Trivedi DMD [Dentist] - Bill Burgos DMD [Dentist] - Marisela Whitfield DMD [Dentist] - Maurisio Myers [Physician] - Interventions: ED Discharge Assessment Last Done: 01/12/25 19:56 Discharge Date/Time: 01/12/25 19:57 Print Language: Macedonian
[2025-01-12 12:54] LABS: MANUAL DIFF FLAG NO
[2025-01-12 12:56] LABS: Basophils Percent Auto 0.5 % (0-2); Eosinophils Absolute Auto 0.2 X10*3/uL (0.0-0.4); Eosinophils Percent Auto 2.4 % (0-4); Hematocrit 39.4 % (42.0-52.0); Hemoglobin 13.5 g/dl (14.0-18.0); Imm Gran Abs Auto 0.03 X10*3/uL (0.00-0.03); Imm Gran Pct Auto 0.4 % (0.0-0.4); Lymphocytes Absolute Auto 3.8 X10*3/uL (1.2-4.9); Lymphocytes Percent Auto 44.8 % (20-40); Mean Corpuscular HGB Conc 34.3 g/dl (31.0-36.0); Mean Corpuscular Hemoglobin 27.7 pg (27.0-33.0); Mean Corpuscular Volume 80.7 fL (80.0-98.0); Mean Platelet Volume 9.1 fL (9.4-12.4); Monocytes Absolute Auto 0.8 X10*3/uL (0.1-1.2); Neutrophils Absolute Auto 3.6 x10*3/uL (2.0-8.3); Neutrophils Percent Auto 42.9 % (45-73); Platelet Count 170 X10*3/uL (160-400); Red Blood Count 4.88 X10*6/uL (4.60-5.80); Red Cell Distribution Width 13.3 % (11.0-16.0); White Blood Count 8.4 X10*3/uL (4.8-10.8)
[2025-01-12 13:11] LABS: Alanine Aminotransferase 16 U/L (0-40); Albumin Level 4.1 g/dL (3.5-5.0); Alkaline Phosphatase 56 U/L (39-117); Anion Gap 10 (12-20); Aspartate Amino Transferase 22 U/L (5-37); Bilirubin Total 0.4 mg/dL (0.0-1.0); Blood Urea Nitrogen 15 mg/dL (9-16); C Reactive Protein 1.78 mg/dL (< or = 0.50); Calcium 9.2 mg/dL (8.4-10.2); Carbon Dioxide 29 mmol/L (22-29); Chloride 105 mmol/L (96-108); Creatinine Clr Calc Pharmacy 96.8; Estimated Glomerular Filt Rate > 60; Glucose Random 88 mg/dL (60-115); Potassium 4.1 mmol/L (3.3-5.1); Sodium 140 mmol/L (135-145); Total Protein 7.4 g/dL (6.5-8.0)
[2025-01-12 13:35] LABS: Erythrocyte Sedimentation Rate 16 MM/HR (0-15)
[2025-01-12 17:19] VITALS: BP 173/91; PULSE 68; RESP 17; TEMP 37.7; O2SAT 99
[2025-01-12] MEDS: Ampicillin Sodium/Sulbactam Na 3 GM in 0.9 % Sodium Chloride 100 ML IV (17:45)
[2025-01-12] MEDS: Ketorolac Tromethamine 15 MG/ML VIAL IVPUSH (17:45)
[2025-01-12] MEDS: iohexoL 350 MG/ML 100 ML INFUS..BTL IV (18:25)
[2025-01-12 19:56] VITALS: BP 173/91; PULSE 68; RESP 17; TEMP 37.7; O2SAT 99
== END 2025-01-12 19:57 | disposition home or self-care (01) ==
PROVIDERS: Registered Nurse Emergency; Emergency Provider Emergency Medicine; PCP Physician Assistant
DX: K04.7 Periapical abscess without sinus (principal); R68.84 Jaw pain; I10 Essential (primary) hypertension; R51.9 Headache, unspecified; F17.210 Nicotine dependence, cigarettes, uncomplicated; R59.1 Generalized enlarged lymph nodes; Z79.899 Other long term (current) drug therapy
CPT/HCPCS: 36415; 70487; 80053; 85025; 85652; 86140; 96365; 96375; 99285; J0295; J1885; Q9967

== ENCOUNTER → 2025-01-12 17:17 | Outpatient (BNV) | payer OTHER, SELFPAY | PROVIDERS: Emergency Provider Emergency Medicine; PCP Physician Assistant; Visit Provider Radiology Diagnostic Radiology | DX: K12.2 Cellulitis and abscess of mouth (principal) | CPT/HCPCS: 70487 ==

== ENCOUNTER 2025-01-16 14:06 | Outpatient (AMB) | payer OTHER, SELFPAY ==
[2025-01-16 14:08] VITALS: BP 122/82; PULSE 78; RESP 16; TEMP 36.3; O2SAT 98; BMI 31.0
--- NOTE | 2025-01-16 14:08 | MHC.PC.OV ---
Vital Signs 01/16/25 14:08 Height 5 ft 8 in Weight 204 lb BMI 31.0 BP 122/82 Blood Pressure Location Lt brachial Position Sitting Respiration 16 Pulse 78 Pulse Source Pulse Oximeter Temp 97.3 F Temp Source Temporal Artery Scan Pulse Oximetry (%) 98 Oxygen Delivery Method Room Air Intake Visit Reasons: 3mth f/u Loss Prevention Auditor Required: Yes Loss Prevention Auditor Language: Biochemical Development Engineer Name: used tablet- Accompanied by: Self / Same As Patient Allergies No Known Allergies Allergy (Verified 01/16/25 14:21) Medication List - Last Reconciled 01/16/25 by Colton Alvarenga PA-C amoxicillin-pot clavulanate 875-125 mg 1 tab PO BID 7 days clonazepam 2 mg PO DAILY PRN 30 days clonidine HCl 0.1 mg PO BID PRN 30 days docusate sodium 100 mg PO BID 30 days gabapentin 300 mg PO BID 30 days hydrochlorothiazide 12.5 mg PO DAILY hydroxyzine HCl 50 mg PO BID 90 days meclizine 12.5 mg PO TID 15 days mirtazapine 30 mg PO BEDTIME 30 days jedvtnkhv-qukutfbx-nzgfo-w.pet 0.25-1 % (Preparation H Maximum Strength) 1 appl [place] BID 5 days risperidone (Risperdal) 2 mg PO BEDTIME 30 days sertraline (Zoloft) 100 mg PO DAILY 90 days Tobacco use date assessed: 01/16/25 Dental Screening Dental Screen Date: 01/16/25 Did you have a dental visit in the last 12 months?: Yes Did you have a dental problem in the last 6 months where you did not have access to dental care?: No Was dental information given to patient?: Patient has dentist HPI 3mth f/u HPI Details Patient is a 44-year-old male here today for follow-up on his anxiety. He continues with the use of mirtazapine, Zoloft, Risperdal and p.r.n. use of clonazepam for his anxiety. Patient recently seen at the [facility] for dental pain. CT of facial bones did show evidence of a dental abscess. He was started on Augmentin. PTSD/ MDD: He reports he will be set up with a psychiatrist this month . Continues with mirtazapine, clonazepam, clonidine and Risperdal with decent affect on his mood and anxiety. Opiate dependency: Now followed at a Suboxone clinic over the last 5 months and has been sober from street drugs per patient. No living in [facility] house and doing group therapy. CVA: Patient has a history of a CVA that left him with bilateral upper extremity muscle atrophy and weakness. He has limited ability and dexterity with both of his hands. He is disabled due to this. [facility] Surgical History Appendicitis Family History Father No problems noted. Mother No problems noted. Social History Housing: Apartment Alcohol intake: former Patient Tobacco Use Status: Current everyday Tobacco user Tobacco use type: Cigarette Cigarettes Per Day: 6 e-Cigarette/Vaping Use: Never Used Second Hand Smoke Exposure: No service: No Current occupational status: unemployed and disabled Cognitive needs: No Hearing needs: No Vision needs: No Questionnaire PHQ-9 Over the last 2 weeks, how often have you been bothered by any of the following problems? 1. Little interest or pleasure in doing things: nearly every day 2. Feeling down, depressed, or hopeless: nearly every day 3. Trouble falling or staying asleep, or sleeping too much: nearly every day 4. Feeling tired or having little energy: nearly every day 5. Poor appetite or overeating: more than half the days 6. Feeling bad about yourself - or that you are a failure or have let yourself or your family down: nearly every day 7. Trouble concentrating on things, such as reading the newspaper or watching television: nearly every day 8. Moving or speaking so slowly that other people could have noticed. Or the opposite - being so fidgety or restless that you have been moving around a lot more than usual: nearly every day 9. Thoughts that you would be better off or of hurting yourself in some way: not at all Total score: 23 Depression Screening Interpretation: Positive Depression Screening Follow-up: Existing condition and In treatment Depression Screening Done: Yes 31100 - PHQ-9 Billing: Yes Source: Developed by Drs. Eliecer Rodriguez, Mario Chase and colleagues, with an educational jessica from [employer]. Thrive Questionnaire Date Thrive assessed: 01/16/25 I am a: Patient What is your living situation today?: I have a steady place to live Within the past 12 months, did the food you bought not last and you didn't have the money to get more?: Never true Within the past 12 months, did you worry whether your food would run out before you got money to buy more?: Never true Do you have trouble paying for medicines?: No Do you have trouble getting transportation to medical appointments?: No Do you have trouble paying your heating and electricity bill?: No Do you have trouble taking care of your child, family member or friend?: No Do you have trouble with day-to-day activities such as bathing, preparing meals, shopping, managing finances, etc.?: No Are you currently unemployed and looking for a job?: No Are you interested in more education?: No Please select the resources that you would like help with: None Currently or been in a relationship where the following occur: No concerns reported THRIVE Score: 0 AUDIT C Alcohol Use Questionnaire (AUDIT-C) 1. How often do you have a drink containing alcohol?: Never 3. How often do you have six or more drinks on one occasion?: Never Total Score: 0 SUSANNA-7 AMB Questionnaire SUSANNA-7 Date SUSANNA - 7 assessed: 01/16/25 Feeling nervous, anxious, or on edge: 0 = Not at all Not being able to stop or control worryin = Not at all Worrying too much about different things: 0 = Not at all Trouble relaxin = Not at all Being so restless that it is hard to sit still: 0 = Not at all Becoming easily annoyed or irritable: 0 = Not at all Feeling afraid as if something awful might happen: 0 = Not at all Total SUSANNA-7 score (0-4 normal; 5-9 mild; 10-14 moderate; 15-21 severe): 0 Source: Developed by Drs. Eliecer Rodriguez, Mario Chase and colleagues, with an educational jessica from [employer]. SUSANNA-7 Assessment Billing SUSANNA-7 Assessment Tool: SUSANNA-7 Assessment 73143 Review of Systems Const Denies headache(s) Eyes Denies loss of vision ENT Denies vertigo, Denies dizziness, Denies headache(s) and Denies sore throat Card Denies chest pain, Denies leg edema and Denies lightheadedness Resp Denies cough, Denies hemoptysis and Denies wheezing GI Denies abdominal pain, Denies melena, Denies constipation, Denies diarrhea and Denies vomiting Denies dysuria, Denies urinary frequency and Denies urinary urgency Musc Denies arthralgias, Denies joint swelling, Denies numbness and Denies tingling Neuro Denies Abnormal speech present, Denies behavioral changes, Denies vertigo, Denies dizziness, Denies headache(s), Denies loss of vision, Denies memory loss, Denies numbness and Denies tingling Psych Denies anxiety, Denies behavioral changes, Denies depression, Denies memory loss and Denies panic attacks Jigar/Lymph Denies easy bleeding and Denies easy bruising Aller/Immun Denies wheezing Physical exam (Primary Care) Vital Signs: Last Vital Signs Temp 97.3 F 01/16/25 14:08 Pulse 78 01/16/25 14:08 Resp 16 01/16/25 14:08 BP 122/82 01/16/25 14:08 Pulse Ox 98 01/16/25 14:08 Oxygen Delivery Method Room Air 01/16/25 14:08 BMI result Body Mass Index 31.0 Tobacco/Smoking Status: Tobacco use Status Tobacco use date assessed 01/16/25 01/16/25 14:20 Patient Tobacco Use Status Current everyday Tobacco 01/16/25 14:11 Tobacco use type Cigarette 01/16/25 14:11 e-Cigarette/Vaping Use Never Used 01/16/25 14:11 PHQ-9: PHQ-9 Score PHQ-9: Total score 23 01/16/25 14:20 Depression Screening Interpretation: Positive Depression Screening Follow-up: Existing condition and In treatment Thrive Assessment: Date of Thrive Assessment Date Thrive assessed 01/16/25 01/16/25 14:20 Currently or been in a relationship where the following occur: No concerns reported Const General: healthy appearing, no acute distress, alert and awake Nutritional Appearance: well nourished Orientation/consciousness: oriented to person, oriented to place and oriented to time HENMT Ears: TM's normal bilaterally General nose exam: Normal nasal mucous membranes and turbinates present Eyes Conjunctivae: conjunctivae normal Sclerae: sclerae normal Pupils: Equal, round and reactive pupils present Neck Neck: Yes no lymphadenopathy and Yes no JVD Thyroid: Thyroid normal Carotids: no bruits Resp Effort & Inspection: normal respiratory effort and not tachypneic Auscultation: no crackles, no rales, no rhonchi and no wheezes Cardio Rate: regular rate Rhythm: regular rhythm Heart sounds: no murmurs and normal S1 and S2 GI Palpation (GI): Soft to palpation, nontender, no hepatomegaly and no splenomegaly Auscultation: normal bowel sounds Skin General skin exam: no rashes or lesions noted and dry skin Neuro General: oriented to person, oriented to place and oriented to time Cranial nerves: Yes Equal, round and reactive pupils present Speech: No Abnormal speech present Gait exam (Neuro): Normal gait present Motor exam (neuro): no tremor noted Extrem Other: BILATERAL HANDS AND FOREARMS WITH NOTABLE MUSCLE ATROPHY AND WEAKNESS Right upper extremity: full ROM Left upper extremity: full ROM Right lower extremity: full ROM; no edema Left lower extremity: full ROM; no edema Psych Mental Status: mental status grossly normal Speech and movement: Normal speech and movement present Affect: normal affect Attitude: cooperative Thought process: Normal thought process present Immunizations Boostrix Tdap 2.5 Lf unit-8 mcg-5 Lf/0.5 mL intramuscular syringe Performing Provider: Colton Alvarenga PA-C [facility] Administered by: HAZEL Gaston on 01/16/25 14:47 Dose Route Admin Location Dispensed Lot Number Expiration Date [facility] Assistant Professor Of Psychology 0.5 mL IM Right Deltoid 0.5 mL [id number] 03/18/27 59848-731-04 [employer] VIS Given Date VIS Provided VIS Publication Date 01/16/25 Single Vaccine 21 Eligibility Eligibility Date Funding Source Not [facility] Eligible 01/16/25 Private Coding Level of Care Code Est Pt Level 4 (37102) Diagnoses Essential hypertension I10 Hypertension type: essential hypertension Uncomplicated opioid dependence F11.20 Substance use status: uncomplicated MDD (major depressive disorder), recurrent episode, moderate F33.1 H/O: CVA (cerebrovascular accident) Z86.73 SUSANNA (generalized anxiety disorder) F41.1 Additional Codes PHQ-9 - 81567 - PHQ-9 Billing: Yes ([id number]) SUSANNA-7 Assessment Billing - SUSANNA-7 Assessment Tool: SUSANNA-7 Assessment 09709 ([id number]) Assessment & Plan Assessment & Plan (1) HTN (hypertension): Code(s): I10 - Essential (primary) hypertension Category: Medical Qualifiers: Hypertension type: essential hypertension Qualified Code(s): I10 - Essential (primary) hypertension Plan: Patient's blood pressure acceptable today in office. Will continue him on his current dose of hydrochlorothiazide with goal blood pressure to remain below 140/90 (2) Opiate dependence: Code(s): F11.20 - Opioid dependence, uncomplicated Category: Medical Qualifiers: Substance use status: uncomplicated Qualified Code(s): F11.20 - Opioid dependence, uncomplicated Plan: Patient is going to a Suboxone clinic. He reports he has been sober from street drugs over the last 5 months. He has struggled with opiate dependency for many years and often has relapses.. He reports feeling good. He is currently living in a sober living situation. (3) MDD (major depressive disorder), recurrent episode, moderate: Code(s): F33.1 - Major depressive disorder, recurrent, moderate Category: Medical Plan: Patient's PHQ-9 score positive for depression which has been existing condition for him. He does have talk therapy with a mental health therapist and is establishing care with a psychiatrist in near future. He continues on multiple mental health medications that have helped him. (4) H/O: CVA (cerebrovascular accident): Code(s): Z86.73 - Personal history of transient ischemic attack (TIA), and cerebral infarction without residual deficits Category: Medical Plan: Patient had a stroke several years ago which has led to bilateral upper extremity muscle atrophy and weakness. He has the inability to completely close his hands and make a fist. He is interested in getting [facility] home services to help him with his activities of daily living. Wrote letter to confirm he does disability. (5) SUSANNA (generalized anxiety disorder): Code(s): F41.1 - Generalized anxiety disorder Category: Medical Plan: Patient's anxiety is still a problem for him. He does report clonazepam does relieve him of his anxiety significantly. Has been on benzodiazepines for quite some time and was seeing a psychiatrist while living in [facility]. He has an upcoming appointment with a psychiatrist and advised him to discuss further treatment options for his anxiety. Orders: Orders Microalbumin, Random (w Creat) Today I10 - Essential (primary) hypertension Complete Blood Count no Diff Today Z86.73 - Personal history of transient ischemic attack (TIA), and cerebral infarction without residual deficits Lipid Panel Today Z86.73 - Personal history of transient ischemic attack (TIA), and cerebral infarction without residual deficits Comprehensive [place]. Panel Fast Today Z86.73 - Personal history of transient ischemic attack (TIA), and cerebral infarction without residual deficits Prostate Specific Antigen Scr Today Z12.5 - Encounter for screening for malignant neoplasm of prostate, Z86.73 - Personal history of transient ischemic attack (TIA), and cerebral infarction without residual deficits Medications: Changed From clonazepam 2 mg PO DAILY 30 days PRN 20 tabs 0RF panic attack(s) F41.1 - Generalized anxiety disorder To clonazepam 2 mg PO DAILY 30 days 30 tabs 3RF panic attack(s) F41.1 - Generalized anxiety disorder Refilled docusate sodium 100 mg PO BID 30 days 60 caps 3RF F43.10 - Post-traumatic stress disorder, unspecified Discontinued meclizine Discontinued Reason: Doctor's Order 12.5 mg PO TID 15 days 45 tabs 2RF dizziness H81.13 - Benign paroxysmal vertigo, bilateral On Hold enqxvdvee-yvscumys-ungmm-w.pet 0.25-1 % (Preparation H Maximum Strength) Hold Comment: Doctor's Order 1 appl [place] BID 5 days 26 grams 0RF K64.9 - Unspecified hemorrhoids Patient Instructions: Goal: Blood pressure to remain below 140/90 Barriers: Adherence to physical activity and healthy eating habits
== END 2025-01-16 14:48 | disposition home or self-care (01) ==
PROVIDERS: PCP Physician Assistant; Visit Provider Physician Assistant
DX: I10 Essential (primary) hypertension (principal); F11.20 Opioid dependence, uncomplicated; F33.1 Major depressive disorder, recurrent, moderate; Z86.73 Personal history of transient ischemic attack (TIA), and cerebral infarction without residual deficits; F41.1 Generalized anxiety disorder; Z23 Encounter for immunization

== ENCOUNTER → 2025-01-16 14:06 | Outpatient (BNVA) | payer OTHER, SELFPAY | PROVIDERS: PCP Physician Assistant; Visit Provider Physician Assistant | DX: Z23 Encounter for immunization (principal); I10 Essential (primary) hypertension; F11.20 Opioid dependence, uncomplicated; F33.1 Major depressive disorder, recurrent, moderate; F41.1 Generalized anxiety disorder; Z86.73 Personal history of transient ischemic attack (TIA), and cerebral infarction without residual deficits | CPT/HCPCS: 90471; 90715; 96127; 99212 ==

== ENCOUNTER 2025-06-06 14:23 | Outpatient (AMB) | payer OTHER, SELFPAY ==
--- NOTE | 2025-06-06 14:29 | MHC.PC.OV ---
Vital Signs 06/06/25 14:31 Height 5 ft 8 in Weight 201 lb 4 oz BMI 30.6 BP 150/78 H Blood Pressure Location Lt brachial Position Sitting Pulse 84 Pulse Source Pulse Oximeter Pulse Oximetry (%) 98 Oxygen Delivery Method Room Air Intake Visit Reasons: F/U Anxiety Biomedical Equipment Support Specialist Required: Yes Biomedical Equipment Support Specialist Language: Latvian Accompanied by: Self / Same As Patient Allergies No Known Allergies Allergy (Verified 06/06/25 14:38) Medication List - Last Reconciled 06/06/25 by Colton Alvarenga PA-C amoxicillin-pot clavulanate 875-125 mg 1 tab PO BID 7 days clonazepam 2 mg PO DAILY 30 days clonidine HCl 0.1 mg PO BID PRN 30 days docusate sodium 100 mg PO BID 30 days gabapentin 300 mg PO BID 30 days hydrochlorothiazide 12.5 mg PO DAILY hydroxyzine HCl 50 mg PO BID 90 days mirtazapine 30 mg PO BEDTIME 30 days escohgkpo-vxbzngjp-weoce-w.pet 0.25-1 % (Preparation H Maximum Strength) 1 appl SD BID 5 days Held on 01/16/25. Instructions: Doctor's Order risperidone (Risperdal) 2 mg PO BEDTIME 30 days sertraline (Zoloft) 100 mg PO DAILY 90 days Tobacco use date assessed: 06/06/25 Dental Screening Dental Screen Date: 06/06/25 Did you have a dental visit in the last 12 months?: No Did you have a dental problem in the last 6 months where you did not have access to dental care?: No Was dental information given to patient?: Yes HPI F/U Anxiety HPI Details Patient is a 45-year-old male here today for follow-up on his anxiety. He continues with the use of mirtazapine, Zoloft, Risperdal and p.r.n. use of clonazepam for his anxiety. PTSD/ MDD: He reports he is on a waiting list to speak with a psychiatrist, continues to speak with a mental health therapist.. Continues with mirtazapine, clonazepam, clonidine and Risperdal with decent affect on his mood and anxiety. Opiate dependency: Now followed at a Suboxone clinic . He reports staying sober from illicit street drugs. CVA: Patient has a history of a CVA that left him with bilateral upper extremity muscle atrophy and weakness. He has limited ability and dexterity with both of his hands. He is disabled due to this. [facility] Surgical History Appendicitis Family History Father No problems noted. Mother No problems noted. Social History Housing: Apartment Alcohol intake: former Patient Tobacco Use Status: Current everyday Tobacco user Tobacco use type: Cigarette Cigarettes Per Day: 6 e-Cigarette/Vaping Use: Never Used Second Hand Smoke Exposure: No service: No Current occupational status: unemployed and disabled Cognitive needs: No Hearing needs: No Vision needs: No Questionnaire PHQ-9 Over the last 2 weeks, how often have you been bothered by any of the following problems? 1. Little interest or pleasure in doing things: more than half the days 2. Feeling down, depressed, or hopeless: more than half the days 3. Trouble falling or staying asleep, or sleeping too much: more than half the days 4. Feeling tired or having little energy: more than half the days 5. Poor appetite or overeating: more than half the days 6. Feeling bad about yourself - or that you are a failure or have let yourself or your family down: more than half the days 7. Trouble concentrating on things, such as reading the newspaper or watching television: more than half the days 8. Moving or speaking so slowly that other people could have noticed. Or the opposite - being so fidgety or restless that you have been moving around a lot more than usual: more than half the days 9. Thoughts that you would be better off or of hurting yourself in some way: more than half the days Total score: 18 Depression Screening Interpretation: Positive Depression Screening Follow-up: Existing condition and In treatment Depression Screening Done: Yes 63931 - PHQ-9 Billing: Yes Source: Developed by Drs. Eliecer Rodriguez, Iveth Marin, Mario Naylor and colleagues, with an educational jessica from [employer]. Thrive Questionnaire Date Thrive assessed: 06/06/25 I am a: Patient What is your living situation today?: I have a steady place to live Within the past 12 months, did the food you bought not last and you didn't have the money to get more?: Never true Within the past 12 months, did you worry whether your food would run out before you got money to buy more?: Never true Do you have trouble paying for medicines?: No Do you have trouble getting transportation to medical appointments?: No Do you have trouble paying your heating and electricity bill?: No Do you have trouble taking care of your child, family member or friend?: Yes Do you have trouble with day-to-day activities such as bathing, preparing meals, shopping, managing finances, etc.?: Yes Are you currently unemployed and looking for a job?: Yes Are you interested in more education?: No Please select the resources that you would like help with: None Currently or been in a relationship where the following occur: No concerns reported THRIVE Score: 0 AUDIT C Alcohol Use Questionnaire (AUDIT-C) 1. How often do you have a drink containing alcohol?: Never Total Score: 0 SUSANNA-7 AMB Questionnaire SUSANNA-7 Date SUSANNA - 7 assessed: 06/06/25 Feeling nervous, anxious, or on edge: 2 = More than half the days Not being able to stop or control worryin = More than half the days Worrying too much about different things: 2 = More than half the days Trouble relaxin = More than half the days Being so restless that it is hard to sit still: 2 = More than half the days Becoming easily annoyed or irritable: 2 = More than half the days Feeling afraid as if something awful might happen: 2 = More than half the days Total SUSANNA-7 score (0-4 normal; 5-9 mild; 10-14 moderate; 15-21 severe): 14 Source: Developed by Drs. Eliecer Rodriguez, Iveth Marin, Mario Naylor and colleagues, with an educational jessica from [employer]. SUSANNA-7 Assessment Billing SUSANNA-7 Assessment Tool: SUSANNA-7 Assessment 92419 Review of Systems Const Denies headache(s) Eyes Denies loss of vision ENT Denies vertigo, Denies dizziness, Denies headache(s) and Denies sore throat Card Denies chest pain, Denies leg edema and Denies lightheadedness Resp Denies cough, Denies hemoptysis and Denies wheezing GI Denies abdominal pain, Denies melena, Denies constipation, Denies diarrhea and Denies vomiting Denies dysuria, Denies urinary frequency and Denies urinary urgency Musc Denies arthralgias, Denies joint swelling, Denies numbness and Denies tingling Neuro Denies Abnormal speech present, Denies behavioral changes, Denies vertigo, Denies dizziness, Denies headache(s), Denies loss of vision, Denies memory loss, Denies numbness and Denies tingling Psych Denies anxiety, Denies behavioral changes, Denies depression, Denies memory loss and Denies panic attacks Jigar/Lymph Denies easy bleeding and Denies easy bruising Aller/Immun Denies wheezing Physical exam (Primary Care) Vital Signs: Last Vital Signs Pulse 84 06/06/25 14:31 BP 150/78 H 06/06/25 14:31 Pulse Ox 98 06/06/25 14:31 Oxygen Delivery Method Room Air 06/06/25 14:31 BMI result Body Mass Index 30.6 Tobacco/Smoking Status: Tobacco use Status Tobacco use date assessed 06/06/25 06/06/25 14:37 Patient Tobacco Use Status Current everyday Tobacco 06/06/25 14:37 Tobacco use type Cigarette 06/06/25 14:37 e-Cigarette/Vaping Use Never Used 06/06/25 14:37 PHQ-9: PHQ-9 Score PHQ-9: Total score 18 06/06/25 14:37 Depression Screening Interpretation: Positive Depression Screening Follow-up: Existing condition and In treatment Thrive Assessment: Date of Thrive Assessment Date Thrive assessed 06/06/25 06/06/25 14:37 Currently or been in a relationship where the following occur: No concerns reported Const General: healthy appearing, no acute distress, alert and awake Nutritional Appearance: well nourished Orientation/consciousness: oriented to person, oriented to place and oriented to time HENMT Ears: TM's normal bilaterally General nose exam: Normal nasal mucous membranes and turbinates present Eyes Conjunctivae: conjunctivae normal Sclerae: sclerae normal Pupils: Equal, round and reactive pupils present Neck Neck: Yes no lymphadenopathy and Yes no JVD Thyroid: Thyroid normal Carotids: no bruits Resp Effort & Inspection: normal respiratory effort and not tachypneic Auscultation: no crackles, no rales, no rhonchi and no wheezes Cardio Rate: regular rate Rhythm: regular rhythm Heart sounds: no murmurs and normal S1 and S2 GI Palpation (GI): Soft to palpation, nontender, no hepatomegaly and no splenomegaly Auscultation: normal bowel sounds Skin General skin exam: no rashes or lesions noted and dry skin Neuro General: oriented to person, oriented to place and oriented to time Cranial nerves: Yes Equal, round and reactive pupils present Speech: No Abnormal speech present Gait exam (Neuro): Normal gait present Motor exam (neuro): no tremor noted Extrem Right upper extremity: full ROM Left upper extremity: full ROM Right lower extremity: full ROM; no edema Left lower extremity: full ROM; no edema Psych Mental Status: mental status grossly normal Speech and movement: Normal speech and movement present Affect: normal affect Attitude: cooperative Thought process: Normal thought process present Coding Level of Care Code Est Pt Level 4 (12533) Diagnoses Essential hypertension I10 Hypertension type: essential hypertension Uncomplicated opioid dependence F11.20 Substance use status: uncomplicated MDD (major depressive disorder), recurrent episode, moderate F33.1 H/O: CVA (cerebrovascular accident) Z86.73 SUSANNA (generalized anxiety disorder) F41.1 Lumbar spine pain M54.50 Additional Codes SUSANNA-7 Assessment Billing - SUSANNA-7 Assessment Tool: SUSANNA-7 Assessment 10418 ([id number]) PHQ-9 - 43388 - PHQ-9 Billing: Yes ([id number]) Assessment & Plan Assessment & Plan (1) HTN (hypertension): Code(s): I10 - Essential (primary) hypertension Category: Medical Qualifiers: Hypertension type: essential hypertension Qualified Code(s): I10 - Essential (primary) hypertension Plan: Patient's blood pressure acceptable today in office. Will continue him on his current dose of hydrochlorothiazide with goal blood pressure to remain below 140/90 (2) Opiate dependence: Code(s): F11.20 - Opioid dependence, uncomplicated Category: Medical Qualifiers: Substance use status: uncomplicated Qualified Code(s): F11.20 - Opioid dependence, uncomplicated Plan: Patient is going to a Suboxone clinic. He reports he stays weight from any street opiates. He has struggled with opiate dependency for many years and often has relapses.. He reports feeling good. He is currently living in a sober living situation. (3) MDD (major depressive disorder), recurrent episode, moderate: Code(s): F33.1 - Major depressive disorder, recurrent, moderate Category: Medical Plan: Patient's PHQ-9 score positive for depression which has been existing condition for him.. He is speaking with a mental health therapist, he is on a waiting list to speak with a bandage psychiatrist help manage his medication. (4) H/O: CVA (cerebrovascular accident): Code(s): Z86.73 - Personal history of transient ischemic attack (TIA), and cerebral infarction without residual deficits Category: Medical Plan: Patient had a stroke several years ago which has led to bilateral upper extremity muscle atrophy and weakness. He has the inability to completely close his hands and make a fist. He is interested in getting [facility] home services to help him with his activities of daily living. Wrote letter to confirm he does disability. (5) SUSANNA (generalized anxiety disorder): Code(s): F41.1 - Generalized anxiety disorder Category: Medical Plan: Patient's susanna 7 score positive for anxiety which has been existing condition for him. He does report clonazepam does relieve him of his anxiety significantly. Has been on benzodiazepines for quite some time and was seeing a psychiatrist while living in [facility]. He has an upcoming appointment with a psychiatrist and advised him to discuss further treatment options for his anxiety. (6) Lumbar spine pain: Code(s): M54.50 - Low back pain, unspecified Category: Medical Plan: Patient reports having lower back pain. Is asking for higher dose of gabapentin thus will increase his dose to 400 b.i.d.. Medications: Refilled clonidine HCl 0.1 mg PO BID PRN 60 tabs 3RF anxiety 30 days F41.1 - Generalized anxiety disorder docusate sodium 100 mg PO BID 60 caps 3RF 30 days F43.10 - Post-traumatic stress disorder, unspecified gabapentin 300 mg PO BID 60 caps 3RF 30 days Z86.73 - Personal history of transient ischemic attack (TIA), and cerebral infarction without residual deficits hydrochlorothiazide 12.5 mg PO DAILY 90 caps 1RF I10 - Essential (primary) hypertension hydroxyzine HCl 50 mg PO BID 180 tabs 1RF 90 days F41.1 - Generalized anxiety disorder mirtazapine 30 mg PO BEDTIME 30 tabs 3RF 30 days F33.1 - Major depressive disorder, recurrent, moderate risperidone (Risperdal) 2 mg PO BEDTIME 30 tabs 6RF 30 days F43.10 - Post-traumatic stress disorder, unspecified sertraline (Zoloft) 100 mg PO DAILY 90 tabs 1RF 90 days F41.1 - Generalized anxiety disorder
[2025-06-06 14:31] VITALS: BP 150/78; PULSE 84; O2SAT 98; BMI 30.6
== END 2025-06-06 14:59 | disposition home or self-care (01) ==
LOC: HO.HMCH 14:24
PROVIDERS: PCP Physician Assistant; Visit Provider Physician Assistant
DX: I10 Essential (primary) hypertension (principal); F11.20 Opioid dependence, uncomplicated; F33.1 Major depressive disorder, recurrent, moderate; Z86.73 Personal history of transient ischemic attack (TIA), and cerebral infarction without residual deficits; F41.1 Generalized anxiety disorder; M54.50 Low back pain, unspecified

== ENCOUNTER → 2025-06-06 14:23 | Outpatient (BNVA) | payer OTHER, SELFPAY | PROVIDERS: PCP Physician Assistant; Visit Provider Physician Assistant | DX: I69.334 Monoplegia of upper limb following cerebral infarction affecting left non-dominant side (principal); I69.331 Monoplegia of upper limb following cerebral infarction affecting right dominant side; F41.9 Anxiety disorder, unspecified; I10 Essential (primary) hypertension; F11.20 Opioid dependence, uncomplicated; F33.1 Major depressive disorder, recurrent, moderate; F41.1 Generalized anxiety disorder; M54.50 Low back pain, unspecified | CPT/HCPCS: 96127; 99212 ==

== ENCOUNTER 2025-10-17 14:42 | Outpatient (AMB) | payer OTHER, SELFPAY ==
--- NOTE | 2025-10-17 14:54 | A.OFFPC_ITS ---
Vital Signs 10/17/25 14:55 Height 5 ft 8 in Weight 207 lb BMI 31.5 BP 120/68 Blood Pressure Location Lt brachial Position Sitting Pulse 101 H Pulse Source Pulse Oximeter Temp 97.1 F Temp Source Temporal Artery Scan Pulse Oximetry (%) 98 Oxygen Delivery Method Room Air Intake Visit Reasons: Annual Exam Intake Note: Patient is here today for a physical. Manager Risk Management Required: Yes Manager Risk Management Language: Arabic Information Interpreted: non-clinical & clinical Trailer Park Manager: Not Required per policy Accompanied by: Self / Same As Patient Allergies No Known Allergies Allergy (Verified 10/17/25 15:16) Medication List - Last Reconciled 10/17/25 by Colton Alvarenga PA-C clonazepam 2 mg PO DAILY 30 days clonidine HCl 0.1 mg PO BID PRN 30 days docusate sodium 100 mg PO BID 30 days gabapentin 400 mg PO BID 30 days hydrochlorothiazide 12.5 mg PO DAILY hydroxyzine HCl 50 mg PO BID 90 days mirtazapine 30 mg PO BEDTIME 30 days qtooaeuox-cnrgyexh-nhcod-w.pet 0.25-1 % (Preparation H Maximum Strength) 1 appl MD BID 5 days Held on 01/16/25. Instructions: Doctor's Order risperidone (Risperdal) 2 mg PO BEDTIME 30 days sertraline (Zoloft) 100 mg PO DAILY 90 days Tobacco use date assessed: 10/17/25 Dental Screening Dental Screen Date: 06/06/25 HPI Annual Exam HPI Details Patient is a 45-year-old male here today for a routine annual physical.. Patient has a past medical history significant for generalized anxiety disorder, PTSD, CVA, opiate dependency. .. PTSD/ MDD: continues to speak with a mental health therapist. He is still interested in seeing a psychiatrist. Continues with mirtazapine, clonazepam, clonidine and Risperdal with decent affect on his mood and anxiety. Opiate dependency: Now followed at a Suboxone clinic . He reports staying sober from illicit street drugs over the last year and a half. CVA: Patient has a history of a CVA that left him with bilateral upper extremity muscle atrophy and weakness. He has limited ability and dexterity with both of his hands. He is disabled due to this. Colorectal cancer screening: willing to do cologaurd Vaccines: Up-to-date with flu vaccine, declines COVID vaccines , Willing to get flu vaccine [facility] Surgical History Appendicitis Family History Father No problems noted. Mother No problems noted. Social History Housing: Apartment Alcohol intake: former Patient Tobacco Use Status: Former Tobacco user Tobacco use type: Cigarette Cigarette Packs Per Day: 0.5 Cigarettes Per Day: 6 e-Cigarette/Vaping Use: Never Used Second Hand Smoke Exposure: Yes service: No Current occupational status: unemployed and disabled Cognitive needs: No Hearing needs: No Vision needs: No Questionnaire Thrive Questionnaire Date Thrive assessed: 06/06/25 I am a: Patient What is your living situation today?: I have a steady place to live Within the past 12 months, did the food you bought not last and you didn't have the money to get more?: Never true Within the past 12 months, did you worry whether your food would run out before you got money to buy more?: Never true Do you have trouble paying for medicines?: No Do you have trouble getting transportation to medical appointments?: No Do you have trouble paying your heating and electricity bill?: No Do you have trouble taking care of your child, family member or friend?: Yes Do you have trouble with day-to-day activities such as bathing, preparing meals, shopping, managing finances, etc.?: Yes Are you currently unemployed and looking for a job?: Yes Are you interested in more education?: No Please select the resources that you would like help with: None Currently or been in a relationship where the following occur: No concerns reported THRIVE Score: 0 SUSANNA-7 AMB Questionnaire SUSANNA-7 Date SUSANNA - 7 assessed: 06/06/25 Source: Developed by Drs. Eliecer Rodriguez, Iveth Marin, Mario Naylor and colleagues, with an educational jessica from [employer]. Review of Systems Const Denies body aches, Denies chills, Denies excessive sweating, Denies fatigue, Denies fever(s) and Denies headache(s) Eyes Denies blurry vision ENT Denies dysphagia, Denies vertigo, Denies dizziness, Denies headache(s), Denies hearing loss and Denies tinnitus Card Denies chest pain, Denies chest pain with activity, Denies syncope, Denies irregular heart rhythm and Denies dyspnea Resp Denies chest congestion, Denies cough, Denies hemoptysis, Denies dyspnea and Denies wheezing GI Denies abdominal pain, Denies melena, Denies hematochezia, Denies coffee ground emesis, Denies dysphagia, Denies diarrhea, Denies nausea and Denies vomiting Denies difficulty urinating, Denies dysuria, Denies urinary frequency, Denies urinary hesitancy and Denies urinary urgency Musc Denies arthralgias, Denies limited range of motion, Denies muscle cramps and Denies muscle weakness Skin/Breast Denies rash and Denies skin ulcer Neuro Denies Abnormal speech present, Denies confusion, Denies vertigo, Denies dizziness, Denies syncope, Denies headache(s), Denies memory loss and Denies seizure-like activity Psych Denies anxiety, Denies confusion, Denies depression, Denies memory loss, Denies panic attacks and Denies paranoia Endo Denies excessive sweating, Denies fatigue, Denies flushing, Denies polydipsia and Denies polyuria Aller/Immun Denies wheezing Physical exam (Primary Care) Vital Signs: Last Vital Signs Temp 97.1 F 10/17/25 14:55 Pulse 101 H 10/17/25 14:55 BP 120/68 10/17/25 14:55 Pulse Ox 98 10/17/25 14:55 Oxygen Delivery Method Room Air 10/17/25 14:55 BMI result Body Mass Index 31.5 Tobacco/Smoking Status: Tobacco use Status Tobacco use date assessed 10/17/25 10/17/25 15:02 Patient Tobacco Use Status Former Tobacco user 10/17/25 15:02 Tobacco use type Cigarette 10/17/25 15:02 e-Cigarette/Vaping Use Never Used 10/17/25 15:02 Thrive Assessment: Date of Thrive Assessment Date Thrive assessed 06/06/25 10/17/25 15:02 Currently or been in a relationship where the following occur: No concerns reported Const General: cooperative, comfortable, no acute distress, alert and awake; No confusion Orientation/consciousness: oriented to person, oriented to place, patient oriented x3 and No confusion HENMT Head: Yes normocephalic Ears: external ears normal and TM's normal bilaterally Face and sinus: No sinus tenderness Mouth: Normal oral and palatal mucosa present and tongue normal Teeth and gingiva: dentition normal and gingiva normal Throat: Yes posterior oropharynx normal, Yes tonsils normal and Yes uvula midline Eyes Conjunctivae: conjunctivae normal Sclerae: sclerae normal Pupils: Equal, round and reactive pupils present EOM: EOMs intact bilaterally Direct Ophthalmoscopy: No no photophobia Neck Neck: Yes no lymphadenopathy, No tender and Yes no JVD Thyroid: Thyroid normal Carotids: no bruits Chest Chest palpation & inspection: no tenderness Resp Effort & Inspection: normal respiratory effort, no audible wheezes, not labored and no stridor Auscultation: no crackles, no rales, no rhonchi and no wheezes Cardio Jugular venous distension: no JVD Rate: regular rate, not bradycardic and not tachycardic Rhythm: regular rhythm Bruits: no carotid bruits Peripheral pulses: Peripheral pulses 2+ throughout GI Inspection: Yes normal to inspection, No abdominal wall ecchymosis and No visible herniation Palpation (GI): Soft to palpation, nontender, no guarding, not rigid and No hepatosplenomegaly present Auscultation: normoactive bowel sounds General: Yes no CVA tenderness Back/Spine/Pelvis Back: no CVA tenderness and No back tenderness Cervical Spine: cervical ROM normal Thoracic/Lumbar Spine: thoracic and lumbar spine normal to inspection, straight leg raise negative bilaterally, No thoraco-lumbar ROM limited and No lumbar spinal tenderness Skin Lesions: no lesions Rashes: no rashes Wounds: no wounds Neuro General: oriented to person, oriented to place, patient oriented x3, CN's II-XI intact bilaterally and No confusion Cranial nerves: Yes Equal, round and reactive pupils present and Yes Normal accommodation reflex present Cognition (Neuro): normal cognition Speech: No Abnormal speech present Gait exam (Neuro): Normal gait present Motor exam (neuro): 5/5 motor strength present throughout Extrem Right upper extremity: full ROM; no cyanosis Left upper extremity: full ROM; no cyanosis Right lower extremity: no edema Left lower extremity: no edema Psych Appearance: grossly normal Mental Status: mental status grossly normal Affect: normal affect Attitude: cooperative Thought process: Normal thought process present Office Procedures Flu Questionnaire Does the patient have a severe egg allergy?: No Does the patient have severe life threatening allergies?: No Does the patient have a fever or illness today?: No Has the patient ever had Guillain-[place] Syndrome?: No Has the patient ever had any past reaction to a flu shot?: No Immunizations Fluarix [id number] (PF) 45 mcg (15 mcg x 3)/0.5 mL IM syringe Performing Provider: Colton Alvarenga PA-C [facility] Administered by: Yudi Dick LPN on 10/17/25 15:36 Dose Route Admin Location Dispensed Lot Number Expiration Date ND Personal Care Worker 0.5 mL IM Left Deltoid 0.5 mL [id number] 05/29/26 [id number] [employer] VIS Given Date VIS Provided VIS Publication Date 10/17/25 Single Vaccine 24 Eligibility Eligibility Date Funding Source Not [facility] Eligible 10/17/25 Private Coding Level of Care Code Est Pt Prev Care 40-64y(12096) Diagnoses Annual physical exam Z00.00 Essential hypertension I10 Hypertension type: essential hypertension Uncomplicated opioid dependence F11.20 Substance use status: uncomplicated H/O: CVA (cerebrovascular accident) Z86.73 Colon cancer screening Z12.11 MDD (major depressive disorder), recurrent episode, moderate F33.1 Assessment & Plan Assessment & Plan (1) Annual physical exam: Code(s): Z00.00 - Encounter for general adult medical examination without abnormal findings Category: Medical Plan: As per HPI (2) HTN (hypertension): Code(s): I10 - Essential (primary) hypertension Category: Medical Qualifiers: Hypertension type: essential hypertension Qualified Code(s): I10 - Essential (primary) hypertension Plan: Patient's blood pressure acceptable today in office. Will continue him on his current dose of hydrochlorothiazide with goal blood pressure to remain below 140/90 (3) Opiate dependence: Code(s): F11.20 - Opioid dependence, uncomplicated Category: Medical Qualifiers: Substance use status: uncomplicated Qualified Code(s): F11.20 - Opioid dependence, uncomplicated Plan: Patient is going to a Suboxone clinic ( [facility]) . He reports he has been sober from Street opiates over the last year and a half. He reports feeling good. He is currently living in a sober living situation. (4) H/O: CVA (cerebrovascular accident): Code(s): Z86.73 - Personal history of transient ischemic attack (TIA), and cerebral infarction without residual deficits Category: Medical Plan: Patient's history of CVA secondary to an overdose many years ago. He has been left with neuromuscular weakness in bilateral upper extremities thus has not been able to do any meaningful work. (5) Colon cancer screening: Code(s): Z12.11 - Encounter for screening for malignant neoplasm of colon Category: Medical Plan: Patient willing to do Cologuard (6) MDD (major depressive disorder), recurrent episode, moderate: Code(s): F33.1 - Major depressive disorder, recurrent, moderate Category: Medical Plan: Patient has unfortunately not been able to stand up establish care with a psyc hiatrist. Continues with the clonazepam on a daily basis. He is interested in connecting with a psychiatrist as he has a long history of mental health disorder Orders: Orders Influenza [id number] Immunization 10/17/25 Z23 - Encounter for immunization Referrals Cologuard Test Z12.11 - Encounter for screening for malignant neoplasm of colon Counseling Referral F33.1 - Major depressive disorder, recurrent, moderate Medications: Refilled clonidine HCl 0.1 mg PO BID PRN 60 tabs 3RF anxiety 30 days F41.1 - Generalized anxiety disorder sertraline (Zoloft) 100 mg PO DAILY 90 tabs 1RF 90 days F41.1 - Generalized anxiety disorder docusate sodium 100 mg PO BID 60 caps 3RF 30 days F43.10 - Post-traumatic stress disorder, unspecified gabapentin 400 mg PO BID 60 caps 3RF 30 days M54.50 - Low back pain, unspecified mirtazapine 30 mg PO BEDTIME 30 tabs 3RF 30 days F33.1 - Major depressive disorder, recurrent, moderate clonazepam 2 mg PO DAILY 30 tabs 3RF panic attack(s) 30 days F41.1 - Generalized anxiety disorder hydrochlorothiazide 12.5 mg PO DAILY 90 caps 1RF I10 - Essential (primary) hypertension hydroxyzine HCl 50 mg PO BID 180 tabs 1RF 90 days F41.1 - Generalized anxiety disorder risperidone (Risperdal) 2 mg PO BEDTIME 30 tabs 6RF 30 days F43.10 - Post- traumatic stress disorder, unspecified Patient Instructions: Goal: Blood pressure to remain below 140/90 Barriers: Adherence to physical activity and healthy eating habits
[2025-10-17 14:55] VITALS: BP 120/68; PULSE 101; TEMP 36.2; O2SAT 98; BMI 31.5
--- OUTSIDE RECORDS SUMMARY | 2025-10-18 12:35 | XMS_ITS | Clinical Summary ---
Author Organization [facility] Address [address] [place] [address] Phone Care Team Providers Care Ostomy Rn Name Role Phone Physician, No Pcp Primary Care Provider Unavaila ble Allergies No known active allergies Encounters Date Type Department Care Team Description 08/02/2025 12:47 PM EDT - 08/02/2025 2:13 PM EDT Emergency [facility] Emergency [address] [place] [address] Cuate Spicer MD Viral gastroenteritis (Primary Dx) Discharge Disposition: Left Against Medical Advice from Last 3 Months Social History Tobacco Use Types Packs/Day Years Used Date Smoking Tobacco: Some Days Cigarettes Smokeless Tobacco: Never Tobacco Cessation:Ready to Q uit: Not Asked; Counseling Given: Not Answered Sex and Gender Information Value Date Recorded Sex Assigned at Not on file Legal Sex Male 11:23 AM EDT Gender Identity Not on file Sexual Orientation Not on file Obstetrics History Last Filed Vital Signs Vital Sign Reading Time Taken Comments Blood Pressure 117/79 08/02/2025 11:42 AM EDT Pulse 65 08/02/2025 11:42 AM EDT Temperature 36.3 C (97.3 F) 08/02/2025 11:42 AM EDT Respiratory Rate 18 08/02/2025 11:42 AM EDT Oxygen Saturation 97% 08/02/2025 11:42 AM EDT Inhaled Oxygen Concentration - - Weight 88.5 kg (195 lb) 08/02/2025 11:42 AM EDT Height 172.7 cm (5' 8 ) 08/02/2025 11:42 AM EDT Body Mass Index 29.65 08/02/2025 11:42 AM EDT Plan of Treatment Health Maintenance Due Date Last Done Comments Colorectal Cancer Screening: Colonoscopy 1979 DTaP,Tdap,and Td Vaccines (1 - Tdap) 1998 Hepatitis B Vaccines (1 of 3 - 19+ 3-dose series) 1998 Pneumococcal Vaccine: Pediat rics (0 to 5 Years) and At-Risk Patients (6 to 49 Years) (1 of 2 - PCV) 1998 Depression Screening 11/30/2024 COVID-19 Vaccine (1 - 2024-2 6 season) 2025 Influenza Vaccine (#1) 2025 Cholesterol Screening (Lipid Panel) 08/02/2025 HIV Screening 08/02/2025 Hepatitis C Screening 08/02/2025 Medicare Annual Wellness Visit 08/02/2025 Social Influencers of Health Screening 08/02/2025 RSV Immunization Adult Patie nts (1 - 1-dose 75+ series) 2054 HIB Vaccines Aged Out No longer eligi ble based on patient's age to complete this topic HPV Vaccines Aged Out No longer eligi ble based on patient's age to complete this topic Hepatitis A Vaccines Aged Out No long er eligible based on patient's age to complete this topic IPV Vaccines Aged Out No longer eligi ble based on patient's age to complete this topic MMR Vaccines Aged Out No longer eligi ble based on patient's age to complete this topic Meningococcal ACWY Vaccine Aged Out N o longer eligible based on patient's age to complete this topic Meningococcal B Vaccine Aged Out No l onger eligible based on patient's age to complete this topic RSV Immunization Patients Un sally 20 months Aged Out No longer eligible b ased on patient's age to complete this topic Varicella Vaccines Aged Out No longer eligible based on patient's age to complete this topic Procedures Procedure Name Priority Date/Time Associated Diagnosis Comments CBC WITH AUTO DIFFERENTIAL STAT 08/02/2025 12:03 PM EDT LIPASE STAT 08/02/2025 12:03 PM EDT COMPREHENSIVE METABOLIC PANEL STAT 08/02/2025 12:03 PM EDT CBC AND DIFFERENTIAL STAT 08/02/2025 12:03 PM EDT from Last 3 Months Results * (ABNORMAL) CBC auto differential (08/02/2025 12:03 PM EDT) [facility] WBC 7.2 4.8 - 10.8 K/mcL LAB HEMETOLOGY METHOD 08/02/2025 12:41 PM [facility] RBC 5.10 4.50 - 5.50 M/mcL LAB HEMETOLOGY METHOD 08/02/2025 12:41 PM [facility] Hemoglobin 14.3 13.5 - 17.5 g/dL LAB HEMETOLOGY METHOD 08/02/2025 12:41 PM [facility] Hematocrit 41.4(L) 42.0 - 54.0 % LAB HEMETOLOGY METHOD 08/02/2025 12:41 PM [facility] MCV 81.2 79.0 - 98.0 FL LAB HEMETOLOGY METHOD 08/02/2025 12:41 PM [facility] MCH 28.0 27.0 - 32.0 pcg LAB HEMETOLOGY METHOD 08/02/2025 12:41 PM [facility] MCHC 34.5 32.0 - 37.0 g/dL LAB HEMETOLOGY METHOD 08/02/2025 12:41 PM [facility] RDW 13.3 11.0 - 15.0 % LAB HEMETOLOGY METHOD 08/02/2025 12:41 PM [facility] Platelets 234 130 - 400 K/mcL LAB HEMETOLOGY METHOD 08/02/2025 12:41 PM [facility] MPV 9.5 7.0 - 11.0 FL LAB HEMETOLOGY METHOD 08/02/2025 12:41 PM [facility] NRBC 0.0 <1.0 % LAB HEMETOLOGY METHOD 08/02/2025 12:41 PM [facility] NRBC Absolute 0.00 <0.10 K/mcL LAB HEMETOLOGY METHOD 08/02/2025 12:41 PM [facility] Neutrophils Relative 34.2 % LAB HEMETOLOGY METHOD 08/02/2025 12:41 PM [facility] Lymphocytes Relative 53.6 % LAB HEMETOLOGY METHOD 08/02/2025 12:41 PM [facility] Monocytes Relative 7.0 % LAB HEMETOLOGY METHOD 08/02/2025 12:41 PM [facility] Eosinophils Relative 4.1 % LAB HEMETOLOGY METHOD 08/02/2025 12:41 PM [facility] Basophils Relative 1.0 % LAB HEMETOLOGY METHOD 08/02/2025 12:41 PM [facility] Immature Granulocytes Relative 0.1 % LAB HEMETOLOGY METHOD 08/02/2025 12:41 PM [facility] Neutrophils Absolute 2.45 1.50 - 7.00 K/mcL LAB HEMETOLOGY METHOD 08/02/2025 12:41 PM [facility] Lymphocytes Absolute 3.83 1.00 - 5.00 K/mcL LAB HEMETOLOGY METHOD 08/02/2025 12:41 PM [facility] Monocytes Absolute 0.50 0.20 - 1.00 K/mcL LAB HEMETOLOGY METHOD 08/02/2025 12:41 PM [facility] Eosinophils Absolute 0.29 0.00 - 0.50 K/mcL LAB HEMETOLOGY METHOD 08/02/2025 12:41 PM [facility] Basophils Absolute 0.07 0.00 - 0.20 K/mcL LAB HEMETOLOGY METHOD 08/02/2025 12:41 PM [facility] Immature Granulocytes Absolute 0.01 0.00 - 0.03 K/mcL LAB HEMETOLOGY METHOD 08/02/2025 12:41 PM [facility] Blood Venous blood specimen / Unknown Venipuncture / Unknown 08/02/2025 12:03 PM EDT 08/02/2025 12:32 PM EDT us Cuate Spicer MD LAB BLOOD ORDERABLES Final Resul t Performing Organization Address [facility]/ZIP Co de Phone Number [facility] [address] [place] [address], [place] [phone] * Lipase (08/02/2025 12:03 PM EDT) Lipase 24 13 - 75 unit/L LAB CHEMISTRY METHOD 08/02/2025 1:25 PM EDT [facility] Blood Venous blood specimen / Unknown Venipuncture / Unknown 08/02/2025 12:03 PM EDT 08/02/2025 12:32 PM EDT us Cuate Spicer MD LAB BLOOD ORDERABLES Final Resul t Performing Organization Address [facility]/ZIP Co de Phone Number [facility] [address] [place] [address], [place] [phone] * Comprehensive metabolic panel (08/02/2025 12:03 PM EDT) Sodium 135 133 - 145 mmol/L LAB CHEMISTRY METHOD 08/02/2025 1:25 PM EDT [facility] Potassium 4.2 3.5 - 5.5 mmol/L LAB CHEMISTRY METHOD 08/02/2025 1:25 PM EDT [facility] Chloride 100 96 - 110 mmol/L LAB CHEMISTRY METHOD 08/02/2025 1:25 PM EDT [facility] CO2 29 21 - 32 mmol/L LAB CHEMISTRY METHOD 08/02/2025 1:25 PM EDT [facility] Anion Gap 6 3 - 11 LAB CHEMISTRY METHOD 08/02/2025 1:25 PM EDT [facility] Glucose 88 70 - 100 mg/dL LAB CHEMISTRY METHOD 08/02/2025 1:25 PM [facility] BUN 14 5 - 25 mg/dL LAB CHEMISTRY METHOD 08/02/2025 1:25 PM [facility] Creatinine 1.00 0.70 - 1.30 mg/dL LAB CHEMISTRY METHOD 08/02/2025 1:25 PM [facility] eGFR 94 >=60 mL/min/1. 73m2 LAB CHEMISTRY METHOD 08/02/2025 1:25 PM [facility] Comment:Calculation based on the Chronic Kidney Disease Epidemiology Collaboration (CKD-EPI) equation refit without adjustment for race. BUN/Creatinine Ratio 14.0 LAB CHEMISTRY METHOD 08/02/2025 1:25 PM [facility] Calcium 9.6 8.5 - 10.5 mg/dL LAB CHEMISTRY METHOD 08/02/2025 1:25 PM [facility] AST (SGOT) 20 10 - 42 unit/L LAB CHEMISTRY METHOD 08/02/2025 1:25 PM [facility] ALT (SGPT) 19 10 - 60 unit/L LAB CHEMISTRY METHOD 08/02/2025 1:25 PM [facility] Alkaline Phosphatase 45 42 - 121 unit/L LAB CHEMISTRY METHOD 08/02/2025 1:25 PM [facility] Total Protein 7.3 6.0 - 8.0 g/dL LAB CHEMISTRY METHOD 08/02/2025 1:25 PM [facility] Albumin 4.1 3.2 - 5.0 g/dL LAB CHEMISTRY METHOD 08/02/2025 1:25 PM [facility] Total Bilirubin 0.6 0.0 - 1.4 mg/dL LAB CHEMISTRY METHOD 08/02/2025 1:25 PM [facility] Blood Venous blood specimen / Unknown Venipuncture / Unknown 08/02/2025 12:03 PM EDT 08/02/2025 12:32 PM EDT us Cuate Spicer MD LAB BLOOD ORDERABLES Final Resul t [facility]) [facility] [address] [place] [address], [place] [phone] from Last 3 Months Insurance [facility] MEDICARE Member Subscriber Plan / Payer (Ef fective 2024-Present) Name:KYLE CLAYTONRIQUE Relation to Subscriber:Self Name:Kyle Clayton Payer ID:[id number] Group ID:[id number] Type:Not on file Address: [facility] [address] [id number] Care Teams Ostomy Rn Relationship Specialty Start Date End Date Physician, No Pcp PCP - General 08/02/25
== END 2025-10-17 15:38 | disposition home or self-care (01) ==
LOC: HO.HMCH 14:43
PROVIDERS: PCP Physician Assistant; Visit Provider Physician Assistant
DX: Z23 Encounter for immunization (principal)

== ENCOUNTER → 2025-10-17 14:42 | Outpatient (BNVA) | payer OTHER, SELFPAY | PROVIDERS: PCP Physician Assistant; Visit Provider Physician Assistant | DX: Z00.00 Encounter for general adult medical examination without abnormal findings (principal); F41.9 Anxiety disorder, unspecified; F43.10 Post-traumatic stress disorder, unspecified; F11.20 Opioid dependence, uncomplicated; I10 Essential (primary) hypertension; F33.1 Major depressive disorder, recurrent, moderate; Z86.73 Personal history of transient ischemic attack (TIA), and cerebral infarction without residual deficits; Z23 Encounter for immunization | CPT/HCPCS: 90471; 90656; 99396 ==